=== PATIENT | female | born 1955 | race African-American/Black ===

== ENCOUNTER → 2017-04-28 | Outpatient (CLI) | payer MEDICARE ==
[~2017-04-28] MED LIST: ADVA250A INH; ALBU6.7H INH; AMLO10 PO; BIDITAB PO; CLON.2 PO; COUM5TAB PO; COZA100T PO; LORTA10 PO; NEUR600T PO; PROT40TA PO; REGL10TA5 PO; SEVEL800 PO; SIMV20 PO; VITA100T15 PO
[2017-04-28 15:30] LABS: MEAN CELL VOLUME 90.8 FL (80.0-100.0); MEAN CORPUSCULAR HEMOGLOBIN 29.2 PG (27.0-34.0); MEAN CORPUSCULAR HGB CONC 32.2 % (32.0-36.0); PLATELET COUNT 70 TH/MM3 (150-450); RED BLOOD COUNT 3.63 MIL/MM3 (4.00-5.30); RED CELL DISTRIBUTION WIDTH 15.8 % (11.6-17.2); WHITE BLOOD COUNT 4.2 TH/MM3 (4.0-11.0)
[2017-04-28 15:33] LABS: REVIEW FLAG AUTO DIFF
[2017-04-28 16:00] LABS: ALT (GPT) 11 U/L (10-53); ANION GAP 10 MEQ/L (5-15); AST (GOT) 10 U/L (15-37); BICARBONATE 25.8 MEQ/L (21.0-32.0); BLOOD UREA NITROGEN 22 MG/DL (7-18); CHLORIDE 103 MEQ/L (98-107); GLOMERULAR FILTRATION RATE 9 ML/MIN (>89); GLUCOSE,FASTING 69 MG/DL (74-99); POTASSIUM 4.4 MEQ/L (3.5-5.1); SODIUM (NA) 139 MEQ/L (136-145)
[2017-04-28 16:09] LABS: ALKALINE PHOSPHATASE 107 U/L (45-117); FREE T4 1.59 NG/DL (0.76-1.46); HDL CHOLESTEROL 52.2 MG/DL (40.0-60.0); LDL CHOLESTEROL 27 MG/DL (0-99); TOTAL BILIRUBIN ADULT 1.3 MG/DL (0.2-1.0)
[2017-04-28 16:15] LABS: HEMOGLOBIN A1b 1.9 %; HEMOGLOBIN Ao 83.8 %; HEMOGLOBIN LA1C 1.9 %; HEMOGLOBIN P3 5.9 %
== END ==
LOC: CLAB 14:47
PROVIDERS: ATTEND Internal Medicine Endocrinology, Diabetes & Metabolism
DX: E11.21 Type 2 diabetes mellitus with diabetic nephropathy (principal); E03.9 Hypothyroidism, unspecified; D64.9 Anemia, unspecified; E78.5 Hyperlipidemia, unspecified; I10 Essential (primary) hypertension
CPT/HCPCS: 36415; 80053; 80061; 83036; 84439; 84443; 85027

== ENCOUNTER 2017-11-29 21:49 | Emergency (ER) | payer MEDICARE ==
[~2017-11-29] VITALS: Ht 170.2 cm; Wt 73.6 kg
[2017-11-29 21:54] VITALS: BP 213/91; PULSE 92; RESP 22; TEMP 97.4; O2SAT 92
--- NOTE | 2017-11-29 22:07 | PD ---
HPI Chief Complaint: Skin Problem Time Seen by Provider: 22:04 Travel History International Travel<30 days: No Contact w/Intl Traveler<30days: No Traveled to known affect area: No History of Present Illness HPI 62-year-old female with history of end-stage renal disease on dialysis Thursday, , Thursday, hypertension, COPD, diabetes, presents emergency department for evaluation of her left upper extremity AV fistula. Patient states that she noticed there was a sore on it. She noticed this today when she woke up. Denies any significant pain. No fever or chills. Does not recall injury. She is concerned that it may be infected. She has no other symptoms to report. 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 ) Headaches: Yes Hepatitis: No Hiatal Hernia: No Hypertension: Yes Immune Disorder: No Implanted Vascular Access Dvce: Yes Kidney Stones: No Medical other: Yes (RECENT BOWEL PROBS) Musculoskeletal: No Neurologic: No Psychiatric: No Reproductive: No Immunizations Current: No Migraines: No Myocardial Infarction: No Radiation Therapy: No Renal Failure: Yes (DIALYSIS ) Seizures: No Sickle Cell Disease: No Sleep Apnea: No Thyroid Disease: No Ulcer: No Menopausal: Yes Past Surgical History Abdominal Surgery: No AICD: No Appendectomy: No Cardiac Surgery: No Section: Yes (X2) Cholecystectomy: No Ear Surgery: No Endocrine Surgery: No Eye Surgery: Yes (LASER SX BILATERAL CATARACTS) Genitourinary Surgery: No Gynecologic Surgery: Yes Hysterectomy: Yes (PARTIAL) Insulin Pump: No Joint Replacement: No Oral Surgery: No Pacemaker: No Thoracic Surgery: No Other Surgery: Yes (FISTULA LEFT ARM) Social History Alcohol Use: No Tobacco Use: No Substance Use: No Allergies-Medications (Allergen,Severity, Reaction): Coded Allergies: diatrizoate meglumine (Unverified Allergy, Severe, Swelling,ITCHING, ) furosemide (Unverified Allergy, Severe, 11/29/17) IV gadobenic acid (Unverified Allergy, Severe, Swelling,ITCHING, 11/29/17) gadodiamide (Unverified Allergy, Severe, Swelling,ITCHING, 11/29/17) gadoteridol (Unverified Allergy, Severe, Swelling,ITCHING, 11/29/17) iodixanol (Unverified Allergy, Severe, Swelling,ITCHING, 11/29/17) iohexol (Unverified Allergy, Severe, Swelling,ITCHING, 11/29/17) latex (Unverified Allergy, Severe, RASH, ITCH, 11/29/17) pioglitazone (Unverified Allergy, Severe, Swelling,ITCHING, 11/29/17) pregabalin (Unverified Allergy, Intermediate, VERY CONFUSED, 11/29/17) morphine (Unverified Allergy, Mild, NAUSEA/VOMITING, 11/29/17) *MDRO Multi-Drug Resistant Organism (Verified Allergy, Unknown, 11/29/17) Acinetobacter baumannii 2009 Reported Meds & Prescriptions Reported Meds & Active Scripts Active Mupirocin Topical (Mupirocin) 2 % Oint 1 Applic TOPICAL BID Reported Renvela (Sevelamer Carbonate) 800 Mg Tab 800 Mg PO TID Zocor (Simvastatin) 20 Mg Tab 20 Mg PO DAILY Protonix (Pantoprazole Sodium) 40 Mg Tab 40 Mg PO DAILY Reglan (Metoclopramide HCl) 5 Mg Tab 5 Mg PO TIDAC Cozaar (Losartan Potassium) 100 Mg Tab 100 Mg PO DAILY Gabapentin 300 Mg Cap 300 Mg PO HS Advair Diskus Inh (Fluticasone-Salmeterol Inh) 250-50 Mcg/Blist Aer 1 Puff INH BID Rinse mouth after use. Vitamin B12 (Cyanocobalamin) 500 Mcg Tab 2,000 Mcg PO WEEKLY Clonidine (Clonidine HCl) 0.1 Mg Tab 0.1 Mg PO TID Norvasc (Amlodipine Besylate) 10 Mg Tab 10 Mg PO DAILY Proventil Hfa 6.7 GM Inh (Albuterol Sulfate) 90 Mcg/Act Aer 2 Puff INH Q6H PRN Review of Systems Except as stated in HPI: all other systems reviewed are Neg Physical Exam Narrative GENERAL: Currently ill-appearing female patient, sitting in the chair, in no acute distress. SKIN: Focused skin assessment warm/dry. There is a 2 cm diameter area of excoriation on the proximal aspect of the AV fistula on the medial left upper extremity. No erythema or edema. No drainage. HEAD: Atraumatic. Normocephalic. EYES: Pupils equal and round. No scleral icterus. No injection or drainage. ENT: No nasal bleeding or discharge. Mucous membranes pink and moist. NECK: Trachea midline. No JVD. CARDIOVASCULAR: Regular rate and rhythm. 2/6 systolic murmur appreciated. RESPIRATORY: No accessory muscle use. Clear to auscultation. Breath sounds equal bilaterally. GASTROINTESTINAL: Abdomen soft, non-tender, nondistended. Hepatic and splenic margins not palpable. MUSCULOSKELETAL: No obvious deformities. No clubbing. No cyanosis. Left upper AV fistula. Positive thrill. Positive bruit NEUROLOGICAL: Awake and alert. No obvious cranial nerve deficits. Motor grossly within normal limits. Normal speech. PSYCHIATRIC: Appropriate mood and affect; insight and judgment normal. Data Data Last Documented VS Vital Signs Date Time Temp Pulse Resp B/P (MAP) Pulse Ox O2 Delivery O2 Flow Rate FiO2 11/29/17 22:18 75 15 186/73 (110) 100 Room Air 11/29/17 21:54 97.4 MDM Medical Decision Making Medical Screen Exam Complete: Yes Emergency Medical Condition: Yes Medical Record Reviewed: Yes Differential Diagnosis Excoriation versus abrasion versus subcutaneous infection versus cellulitis Narrative Course 62-year-old female presents to emergency department for evaluation of a sore on her left upper extremity AV fistula. This appears to be superficial excoriation as the location is medial and maybe rubbing up against her body clothing. There is no surrounding erythema. No induration or fluctuation. I discussed the patient with my attending physician who is also assess the area. Patient will be provided [place] ointment. She is advised to follow-up with primary care provider and return immediately with any acute worsening symptoms. Of note patient's oxygenation is 92% when he arrived to our facility. Her oxygen was not on. One section was placed and she is dependent on this at home , O2 sat return to normal. Diagnosis Primary Impression: Skin excoriation Referrals: Primary Care Physician Patient Instructions: Abrasion (ED), General Instructions Additional Instructions: Keep the area clean and dry Consider a dressing over the area to avoid it from rubbing against her clothing Follow-up the primary care provider Return immediately with acute worsening of symptoms Med/Other Pt SpecificInfo: Prescription(s) given Scripts Mupirocin Topical (Mupirocin Topical) 2 % Oint 1 APPLIC TOPICAL BID for Mgmt Bacterial Infection, #22 GM 0 Refills Prov: Mady Fong 11/29/17 Disposition: 01 DISCHARGE HOME Condition: Stable Mady Fong Nov 29, 2017 22:07
[2017-11-29 22:18] VITALS: BP 186/73; PULSE 75; RESP 15; O2SAT 100
[2017-11-29] MEDS ORDERED: ALBU6.7H INH (22:18)
[2017-11-29] MEDS ORDERED: VITA500T35 PO (22:18)
[2017-11-29] MEDS ORDERED: ADVA250A INH (22:18)
[2017-11-29] MEDS ORDERED: COZA100T PO (22:18)
[2017-11-29] MEDS ORDERED: GABA300C5 PO (22:18)
[2017-11-29] MEDS ORDERED: AMLO10 PO (22:18)
[2017-11-29] MEDS ORDERED: CLON0.1T PO (22:18)
[2017-11-29] MEDS ORDERED: REGL5TAB PO (22:18)
[2017-11-29] MEDS ORDERED: SEVEL800 PO (22:18)
[2017-11-29] MEDS ORDERED: ZOCO20TA PO (22:18)
[2017-11-29] MEDS ORDERED: PROT40TA PO (22:18)
[2017-11-29] MEDS ORDERED: MUPI2OIN TOPICAL (22:38)
--- NOTE | 2017-11-29 22:59 | PD ---
Physical Exam Narrative General: The patient is a well-developed well-nourished female in no acute distress. Head and Neck exam: Head is normocephalic atraumatic. Nose: Midline septum with pink mucous membranes Mouth: Dentition unremarkable. Moist mucus membranes. Neck: No palpable lymphadenopathy. No nuchal rigidity. No thyromegaly. Cardiovascular: Regular rate and rhythm without murmurs, gallops, or rubs. Lungs: Clear to auscultation bilaterally. No wheezes, rhonchi, or rales. Abdomen: Soft, without tenderness to palpation in all 4 quadrants of the abdomen. No guarding, rebound, or rigidity. Normal bowel sounds are audible. No tenderness on palpation of McBurney's point. Extremities: No clubbing, cyanosis, or edema. 2+ pulses in all 4 extremities. No calf tenderness on palpation. The area of interest is the patient's left upper extremity. The patient has an AV fistula in place noted to be in the medial aspect of the left upper arm. The patient has a palpable thrill. The patient on examination is noted to have some skin breakdown superficially over the site of the graft. There is no surrounding erythema, edema, warmth, or tenderness on palpation. There is a clear drainage. Neurologic Exam: Grossly nonfocal. No rash noted. Intact skin that is warm and dry. Data Data Last Documented VS Vital Signs Date Time Temp Pulse Resp B/P (MAP) Pulse Ox O2 Delivery O2 Flow Rate FiO2 11/29/17 22:18 75 15 186/73 (110) 100 Room Air 11/29/17 21:54 97.4 MDM Medical Record Reviewed: Yes Supervised Visit with DICK: Yes Narrative Course I, Dr. Layton, have reviewed the advance practice practitioner's documentation and am in agreement, met with the patient face to face, made the diagnosis, and the medical decision making was done by me. The patient was initially evaluated by Mady, the nurse practitioner. Please see their complete history and physical. *My assessment and Findings: The patient presents with a history of having her usual hemodialysis on Thursday after which when her AV fistula was de-accessed she noted an area of redness overlying the site. She reports that today when she woke up from a nap the area of skin breakdown was bigger. She was concerned about the possibility of infection, therefore she came to the emergency department for evaluation and treatment. She denies having any other symptoms associated with this. She does have some hypopigmentation overlying the AV fistula. She reports that this is from prior wounds related to access and scabbing. The patient denies having any fevers, chills, nausea, vomiting, diarrhea. She reports that she is otherwise feeling well. During the course of the patient's emergency department visit, the patient's history, examination, and differential diagnosis were reviewed with the patient. The patient was placed on a secured entrance monitor with oximetry and frequent blood pressure monitoring. The patient will have a nonstick dressing applied to the wound. Patient is given a prescription for a topical antibiotic. She is instructed regarding the importance of closely monitoring the wound for any changes or worsening. She is instructed to do twice daily dressing changes. She will follow-up to have her dialysis on Thursday and have her wound re- examined. Diagnosis Primary Impression: Skin excoriation Referrals: Primary Care Physician Patient Instructions: General Instructions, Abrasion (ED) Additional Instruction: Keep the area clean and dry Consider a dressing over the area to avoid it from rubbing against her clothing Follow-up the primary care provider Return immediately with acute worsening of symptoms Scripts Mupirocin Topical (Mupirocin Topical) 2 % Oint 1 APPLIC TOPICAL BID for Mgmt Bacterial Infection, #22 GM 0 Refills Prov: Mady Fong JOSE GUADALUPE 11/29/17 Disposition: 01 DISCHARGE HOME Condition: Stable Brea Layton MD Nov 29, 2017 22:59
== END 2017-11-29 23:25 | disposition home or self-care (01) ==
LOC: NEPE 21:49
DX: S40.812A Abrasion of left upper arm, initial encounter (principal); E11.22 Type 2 diabetes mellitus with diabetic chronic kidney disease; I13.2 Hypertensive heart and chronic kidney disease with heart failure and with stage 5 chronic kidney disease, or end stage renal disease; I50.9 Heart failure, unspecified; N18.6 End stage renal disease; E78.00 Pure hypercholesterolemia, unspecified; X58.XXXA Exposure to other specified factors, initial encounter; Z99.2 Dependence on renal dialysis
CPT/HCPCS: 99283

== ENCOUNTER 2018-06-04 19:18 | Observation (INO) ==
[2018-06-04] MEDS ORDERED: Sod Chloride 0.9% Inj 1,000 ML IV.SIG ONE (19:28)
[2018-06-04] MEDS ORDERED: Pantoprazole Inj 40 MG Vial IV.PUSH ONE (19:28)
[2018-06-04] MEDS ORDERED: Pantoprazole Inj 80 MG in Sodium Chlor 0.9% Inj 35 ML IV.SIG ONE (19:57)
[2018-06-04 20:21] LABS: Activated Partial Thrombo Time 23.8 sec (24.3-30.1); INR 1.1 Ratio; Prothrombin Time 11.6 sec (9.8-11.6)
--- NOTE | 2018-06-04 20:27 | ED ---
HPI General Chief complaint: GI Bleed Stated complaint: Vomitting blood/weakness Time Seen by Provider: 06/04/18 19:28 Source: patient Mode of arrival: ambulatory Limitations: no limitations History of Present Illness HPI Narrative: Patient is a 63-year-old female that presents for the evaluation of vomiting blood. The patient presents with her daughter who also helps provide some of the history. The patient states that the vomiting began this afternoon. The patient's daughter states that she arrived to the patient's home around 12pm this afternoon and saw the patient laying in bed. The daughter states that the patient proceeded to vomit what look liked a clot of blood. Both the patient and the daughter state that this has continued throughout the afternoon but they are not able to identify the amount of times she has vomited blood. The patient states that nothing like this has ever happened before. She states that she currently feels nauseous and has had some recent diarrhea. She denies any blood in her stool. The patient states that she has felt dizzy and the daughter states that this afternoon the patient had a 3-4 minute episode of altered mental status where she appeared to be hallucinating and did not recognize her family members. Related Data Home Medications Medication Instructions Recorded Confirmed albuterol sulfate 2.5 mg INHALATION Q4H PRN 06/04/18 06/04/18 amlodipine 10 mg PO DAILY 06/04/18 06/04/18 aspirin 81 mg PO DAILY 06/04/18 06/04/18 cinacalcet [Sensipar] 30 mg PO DAILY 06/04/18 06/04/18 ergocalciferol (vitamin D2) 5,000 unit PO DAILY 06/04/18 06/04/18 [Vitamin D2] gabapentin 100 mg PO BID 06/04/18 06/04/18 hydralazine 50 mg PO TID 06/04/18 06/04/18 insulin asp prt-insulin aspart 1 sliding scale dose SUB-Q UD 06/04/18 06/04/18 [Novolog Mix 70-30 U-100 Insuln] sevelamer carbonate [Renvela] See Label Instructions .ROUTE 06/04/18 06/04/18 .COMPLEX simvastatin 40 mg PO QPM 06/04/18 06/04/18 Allergies Allergy/AdvReac Type Severity Reaction Status Date / Time diatrizoate meglumine Allergy Severe Swelling,IT Verified 06/04/18 20:17 DALLIN furosemide Allergy Severe Abdominal Verified 06/04/18 20:17 Pain gadobenic acid Allergy Severe Swelling,IT Verified 06/04/18 20:17 DALLIN gadodiamide Allergy Severe Swelling,IT Verified 06/04/18 20:17 DALLIN gadoteridol Allergy Severe Swelling,IT Verified 06/04/18 20:17 DALLIN iodixanol Allergy Severe Swelling,IT Verified 06/04/18 20:17 DALLIN iohexol Allergy Severe Swelling,IT Verified 06/04/18 20:17 DALLIN latex Allergy Severe RASH, ITCH Verified 06/04/18 20:17 pioglitazone Allergy Severe Swelling,IT Verified 06/04/18 20:17 DALLIN pregabalin Allergy Intermediate VERY Verified 06/04/18 20:17 CONFUSED morphine Allergy Mild NAUSEA/VOMI Verified 06/04/18 20:17 TING *MDRO Multi-Drug Resistant Allergy Unknown Abdominal Uncoded 06/04/18 20:17 Organism Pain Review of Systems ROS: all other systems reviewed are negative ON LICENSE OF [facility] Medical History Medical History COPD (chronic obstructive pulmonary disease) (Acute) Diabetes (Acute) ESRD (end stage renal disease) on dialysis (Acute) HTN (hypertension) (Acute) Social History Social History Substance History: No History of Abuse Second Hand Smoke Exposure: Yes Smoking Status: Never smoker Tobacco Type: Cigarettes How Often Do You Have a Drink Containing Alcohol: Never Recent Travel in [facility] within the Last 8 Weeks: No Recent Out of Country Travel within the Last 8 Weeks: No Immunization History Tetanus Immunization: Unsure Hx Influenza Vaccine This Season: No Exam Narrative Exam Narrative: GENERAL: Anxious and in some distress. SKIN: Focused skin assessment warm/dry. HEAD: Atraumatic. Normocephalic. EYES: Pupils equal and round. No scleral icterus. No injection or drainage. ENT: No nasal bleeding or discharge. Mucous membranes pink and moist. Tongue is midline. No uvula deviation. NECK: Trachea midline. No JVD. CARDIOVASCULAR: Regular rate and rhythm. No murmur appreciated. RESPIRATORY: No accessory muscle use. Clear to auscultation. Breath sounds equal bilaterally. GASTROINTESTINAL: Abdomen soft, non-tender, nondistended. Hepatic and splenic margins not palpable. MUSCULOSKELETAL: No obvious deformities. No clubbing. No cyanosis. No edema. Full range of motion of the upper and lower extremities bilaterally. 2+ pulses bilaterally. NEUROLOGICAL: Awake and alert. No obvious cranial nerve deficits. Motor grossly within normal limits. Normal speech. PSYCHIATRIC: Appropriate mood and affect; insight and judgment normal. Course Initial Documented Vital Signs Pulse Rate 102 H 06/04/18 19:24 Respiratory Rate 22 06/04/18 19:24 Blood Pressure 130/60 06/04/18 19:24 Pulse Oximetry 100 06/04/18 19:24 Last Documented Vital Signs Pulse Rate 98 H 06/04/18 20:09 Respiratory Rate 16 06/04/18 20:09 Blood Pressure 153/77 H 06/04/18 20:09 Pulse Oximetry 98 06/04/18 20:09 Medical Decision Making MDM Narrative Medical decision making narrative: 63-year-old female that presents to the ED for evaluation of GI bleed as well as altered mental status. Patient was properly examined and was found to have signs and symptoms of unclear etiology but concerning for GI bleed especially upper GI bleed. Patient currently is not nauseous and has not vomited at all. Labs and imaging were done. Patient does not take any blood thinners. Labs and imaging did show what appears to be bilateral pleural effusions right worse than left, ESRD, no sign of anemia or white blood cell count elevation. Patient overall looks well but somewhat confused. She is able to answer most questions appropriately. I think is reasonable because of the patient's history for observation for further evaluation and to at least double check that the H&H does not go down and she does not have more upper GI bleed. Patient also has significant pleural effusions that will likely require drainage. This was discussed with my attending who agrees with plan. Case discussed with the family and patient were agree with admission. Case discussed with Dr. Bang agrees to admission to her service. Medical Screen Exam Complete: Yes Emergency Medical Condition: Yes Differential Diagnosis Differential Diagnosis: GI bleed versus peptic ulcer disease versus altered mental status versus dehydration versus anemia versus medication side effect Medical Records Medical records reviewed: Yes I reviewed the patient's medical records. Lab Data Lab results reviewed: Yes I reviewed the patient's lab results. Lab results narrative: Coags within normal limits Result diagrams: 06/04/18 21:25 06/04/18 19:55 Lab Results 06/04/18 06/04/18 06/04/18 Range/Units 19:55 19:55 19:55 WBC (4.0-11.0) th/mm3 RBC (4.00-5.30) mil/mm3 Hgb (11.6-15.3) gm/dL Hct (35.0-46.0) % MCV (80.0-100.0) fL MCH (27.0-34.0) pg MCHC (32.0-36.0) % RDW (11.6-17.2) % Plt Count (150-450) th/mm3 MPV (7.0-11.0) fL Prelim Diff (Auto) Neut % (Auto) (16.0-70.0) % Lymph % (Auto) (9.0-44.0) % Ector % (Auto) (0.0-8.0) % Eos % (Auto) (0.0-4.0) % Baso % (Auto) (0.0-2.0) % Neut # (Auto) (1.8-7.7) th/mm3 Lymph # (Auto) (1.0-4.8) th/mm3 Ector # (Auto) (0.0-0.9) th/mm3 Eos # (Auto) (0.0-0.4) th/mm3 Baso # (Auto) (0.0-0.2) th/mm3 Differential Comment PT 11.6 (9.8-11.6) sec INR 1.1 Ratio APTT 23.8 L (24.3-30.1) sec Sodium 137 (136-145) meq/L Potassium 5.5 H (3.5-5.1) meq/L Chloride 103 (98-107) meq/L Carbon Dioxide 22.8 (21.0-32.0) meq/L Anion Gap 11 (5-15) meq/L BUN 38 H (7-18) mg/dL Creatinine 6.83 H (0.50-1.00) mg/dL Estimated GFR 7 L (>89) mL/min Random Glucose 143 H (74-106) mg/dL Calcium 8.7 (8.5-10.1) mg/dL Total Bilirubin 1.7 H (0.2-1.0) mg/dL AST 32 (15-37) U/L ALT 13 (10-53) U/L Alkaline Phosphatase 95 (45-117) U/L Total Protein 7.7 (6.4-8.2) g/dL Albumin 2.7 L (3.4-5.0) g/dL Lipase 130 (73-393) U/L Blood Type Antibody Screen 06/04/18 06/04/18 Range/Units 19:55 21:25 WBC 11.1 H (4.0-11.0) th/mm3 RBC 3.72 L (4.00-5.30) mil/mm3 Hgb 10.9 L (11.6-15.3) gm/dL Hct 35.5 (35.0-46.0) % MCV 95.6 (80.0-100.0) fL MCH 29.4 (27.0-34.0) pg MCHC 30.7 L (32.0-36.0) % RDW 17.6 H (11.6-17.2) % Plt Count 70 L (150-450) th/mm3 MPV 9.9 (7.0-11.0) fL Prelim Diff (Auto) Slide review pending Neut % (Auto) 85.6 H (16.0-70.0) % Lymph % (Auto) 8.4 L (9.0-44.0) % Ector % (Auto) 5.5 (0.0-8.0) % Eos % (Auto) 0.0 (0.0-4.0) % Baso % (Auto) 0.5 (0.0-2.0) % Neut # (Auto) 9.5 H (1.8-7.7) th/mm3 Lymph # (Auto) 0.9 L (1.0-4.8) th/mm3 Ector # (Auto) 0.6 (0.0-0.9) th/mm3 Eos # (Auto) 0.0 (0.0-0.4) th/mm3 Baso # (Auto) 0.1 (0.0-0.2) th/mm3 Differential Comment . PT (9.8-11.6) sec INR Ratio APTT (24.3-30.1) sec Sodium (136-145) meq/L Potassium (3.5-5.1) meq/L Chloride (98-107) meq/L Carbon Dioxide (21.0-32.0) meq/L Anion Gap (5-15) meq/L BUN (7-18) mg/dL Creatinine (0.50-1.00) mg/dL Estimated GFR (>89) mL/min Random Glucose (74-106) mg/dL Calcium (8.5-10.1) mg/dL Total Bilirubin (0.2-1.0) mg/dL AST (15-37) U/L ALT (10-53) U/L Alkaline Phosphatase (45-117) U/L Total Protein (6.4-8.2) g/dL Albumin (3.4-5.0) g/dL Lipase (73-393) U/L Blood Type O Positive Antibody Screen Negative Imaging Data Attestation: I personally reviewed and interpreted this imaging study as follows : Radiologist's impression: Chest X-Ray 06/04/18 19:28 CONCLUSION: Small to moderate right effusion with bilateral airspace disease, right greater than left. Head CT 06/04/18 19:52 CONCLUSION: 1. No acute intracranial abnormalities. . Discharge Plan Discharge Disposition Patient Disposition: 30 Still Patient Discharge Details Diagnosis: Hematochezia, Altered mental state, Pleural effusion, End-stage renal disease ( ESRD) Physicians Team ED Provider: Fito Hernandez ED Midlevel Provider: Jorje Ghotra Primary Care Provider: Primary Care Eulalia Jaimes Attending Provider: Trena Bang Discharge Interventions Interventions: Vital Signs Last Done: 06/04/18 22:10 Status ED Status: Admitted Observation Patient
[2018-06-04 20:39] LABS: Alanine Aminotransferase 13 U/L (10-53)
[2018-06-04 20:40] LABS: Albumin 2.7 g/dL (3.4-5.0); Anion Gap 11 meq/L (5-15); Aspartate Aminotransferase 32 U/L (15-37); Blood Urea Nitrogen 38 mg/dL (7-18); Calcium 8.7 mg/dL (8.5-10.1); Carbon Dioxide 22.8 meq/L (21.0-32.0); Chloride 103 meq/L (98-107); Glomerular Filtration Rate 7 mL/min (>89); Glucose,Random 143 mg/dL (74-106); Sodium 137 meq/L (136-145)
[2018-06-04 20:42] LABS: Alkaline Phosphatase 95 U/L (45-117); Total Protein 7.7 g/dL (6.4-8.2)
[2018-06-04 21:01] LABS: Potassium 5.5 meq/L (3.5-5.1)
--- NOTE | 2018-06-04 21:10 | XR ---
EXAM DATE: 06/04/2018 9:01 PM EDT AGE/SEX: 63 years / Female INDICATIONS: Shortness of breath and cough with hematemesis. CLINICAL DATA: This is the patient's initial encounter. Patient reports that signs and symptoms have been present for 2 days and indicates a pain score of 0/10. MEDICAL/SURGICAL HISTORY: None. . Dialysis port, right chest. [place] [facility] [place] . FINDINGS: Small to moderate right effusion. Basilar airspace disease, right greater than left. No significant l eft effusion. Mild cardiomegaly. Right-sided catheter tip near cavoatrial junction. No pneumothorax. CONCLUSION: Small to moderate right effusion with bilateral airspace disease, right greater than left. Electronically signed by: Kyle Mercado MD 06/04/2018 9:08 PM EDT
--- NOTE | 2018-06-04 21:29 | CT ---
EXAM DATE: 06/04/2018 9:04 PM EDT AGE/SEX: 63 years / Female INDICATIONS: Altered mental status. Syncopal episode. CLINICAL DATA: This is the patient's initial encounter. Patient reports that signs and symptoms have been present for 1 day and indicates a pain score of 0/10. MEDICAL/SURGICAL HISTORY: Hypertension. Chronic obstructive pulmonary disease. Diabetes. None. RADIATION DOSE: 56.35 CTDI (mGy) [place] [facility] [place]. . TECHNIQUE: CT of the head without contrast. Using automated exposure control and adjustment of the mA and/or kV according to patient size, radiation dose was kept as low as reasonably achievable to ob tain optimal diagnostic quality images. DICOM format image data is available electronically for revi ew and comparison. FINDINGS: Cerebrum: The ventricles are normal for age. No evidence of midline shift, mass lesion, hemorrhage or acute infarction. No extraaxial fluid collections are seen. Posterior Fossa: The cerebellum and brainstem are intact. The 4th ventricle is midline. The cerebe llopontine angle is unremarkable. Extracranial: The visualized portion of the orbits is intact. Skull: The calvaria is intact. No evidence of skull fracture. CONCLUSION: 1. No acute intracranial abnormalities. . Electronically signed by: Kyle Mercado MD 06/04/2018 9:27 PM EDT
[2018-06-04] MEDS: Pantoprazole Inj 80 MG in Sodium Chlor 0.9% Inj 100 ML IV.CONT SCH (21:36)
[2018-06-04 21:40] LABS: Baso # (Auto) 0.1 th/mm3 (0.0-0.2); Baso % (Auto) 0.5 % (0.0-2.0); Hematocrit 35.5 % (35.0-46.0); Hemoglobin 10.9 gm/dL (11.6-15.3); Lymph # (Auto) 0.9 th/mm3 (1.0-4.8); Lymph % (Auto) 8.4 % (9.0-44.0); Mean Corpuscular Hemoglobin 29.4 pg (27.0-34.0); Mean Corpuscular Volume 95.6 fL (80.0-100.0); Mean Platelet Volume 9.9 fL (7.0-11.0); Mono # (Auto) 0.6 th/mm3 (0.0-0.9); Mono % (Auto) 5.5 % (0.0-8.0); Neut # (Auto) 9.5 th/mm3 (1.8-7.7); Neut % (Auto) 85.6 % (16.0-70.0); Platelet Count 70 th/mm3 (150-450); Red Blood Count 3.72 mil/mm3 (4.00-5.30); Red Cell Distribution Width 17.6 % (11.6-17.2); White Blood Count 11.1 th/mm3 (4.0-11.0)
[2018-06-04 21:43] LABS: Mean Corpuscular HGB Conc 30.7 % (32.0-36.0)
[2018-06-04] MEDS ORDERED: Acetaminophen 325 MG Tablet PO PRN (22:15)
[2018-06-04] MEDS ORDERED: Bisacodyl 10 MG Supp RECTAL PRN (22:15)
[2018-06-04 22:19] LABS: Ovalocytes 1+; Platelet Morphology Normal (Normal)
--- NOTE | 2018-06-04 23:11 | P.HPIM ---
History of Present Illness Primary Care Physician: No Primary Care Physician History of Present Illness: This is a 63-year-old female with a PMH of HTN, COPD, DM and ESRD on HD T// Thu who was brought to the ER for AMS and Hematemesis. Family member at bedside on arrival assisting w/ history, apparently patient had multiple episodes of nausea/vomiting w/ what appeared to be a clot. Family member then noted episode of AMS w/ confusion lasting several minutes, noted pt did not recognize her. Mental status now improved, however still noted to be confused. No seizure activity noted. Pt on ASA at home per review of medications. On arrival, BP 130/60, HR 102, O2 sat 100% on 3L NC, Afebrile. Hemoglobin 11.1. Hemoglobin 10.9. Platelets 70, previously hemoglobin 10.6 and platelets 70 on . INR 1.1. Creatinine 6.83, similar to previous. CXR was small to moderate right effusion. CT Head with no acute findings. Follows w/ Dr. Smith , last HD on Thursday. Currently on Protonix gtt - Diagnosis (1) Encephalopathy (2) ESRD (end stage renal disease) on dialysis (3) GI bleed (4) Thrombocytopenia (5) Pleural effusion Review of Systems PAST FAMILY HISTORY: Reviewed, positive for DM. All other systems reviewed negative except as stated in HPI PMFSH - History History Provided By: Patient - Medical History Medical History: Medical History (Last Reviewed 06/04/18 @ 20:18 by HUNTER Finnegan) COPD (chronic obstructive pulmonary disease) Diabetes ESRD (end stage renal disease) on dialysis HTN (hypertension) - Tobacco History Second Hand Smoke Exposure: Yes Smoking Status: Never smoker Tobacco Type: Cigarettes - Alcohol History How Often Do You Have a Drink Containing Alcohol: Never - Substance Use History Substance History: No History of Abuse - Travel History Recent Travel in the [place] Within the Last 8 Weeks: No Recent Travel Out of the Country Within the Last 8 Weeks: No - Immunization History Tetanus Immunization: Unsure Hx Influenza Vaccine This Season: No Medications and Allergies Active Medications: Active Medications Acetaminophen (Tylenol) 650 mg PO Q4H PRN PRN Reason: Temp > 100.4 Al Hydroxide/Mg Hydroxide (Milk Of [place] Liq) 30 ml PO Q12H PRN PRN Reason: Mild Constipation Bisacodyl (Dulcolax Supp) 10 mg RECTAL DAILY PRN PRN Reason: SEVERE CONSITIPATION Pantoprazole Sodium 80 mg/ (Sodium Chloride) 100 mls @ 10 mls/hr IV.CONT CONT NOLVIA Last Admin: 06/04/18 21:36 Dose: 10 mls/hr Lactulose (Lactulose Liq) 30 ml PO DAILY PRN PRN Reason: SEVERE CONSITIPATION Ondansetron HCl (Zofran Inj) 4 mg IV.PUSH Q6H PRN PRN Reason: NAUSEA OR VOMITING Senna/Docusate Sodium (Valarie-Colace) 1 tab PO BID [facility] Sennosides (Senokot) 17.2 mg PO Q12H PRN PRN Reason: Moderate Constipation Allergies Allergy/AdvReac Type Severity Reaction Status Date / Time diatrizoate meglumine Allergy Severe Swelling,IT Verified 06/04/18 20:17 DALLIN furosemide Allergy Severe Abdominal Verified 06/04/18 20:17 Pain gadobenic acid Allergy Severe Swelling,IT Verified 06/04/18 20:17 DALLIN gadodiamide Allergy Severe Swelling,IT Verified 06/04/18 20:17 DALLIN gadoteridol Allergy Severe Swelling,IT Verified 06/04/18 20:17 DALLIN iodixanol Allergy Severe Swelling,IT Verified 06/04/18 20:17 DALLIN iohexol Allergy Severe Swelling,IT Verified 06/04/18 20:17 DALLIN latex Allergy Severe RASH, ITCH Verified 06/04/18 20:17 pioglitazone Allergy Severe Swelling,IT Verified 06/04/18 20:17 DALLIN pregabalin Allergy Intermediate VERY Verified 06/04/18 20:17 CONFUSED morphine Allergy Mild NAUSEA/VOMI Verified 06/04/18 20:17 TING *MDRO Multi-Drug Resistant Allergy Unknown Abdominal Uncoded 06/04/18 20:17 Organism Pain Home Medications Medication Instructions Recorded Confirmed Type albuterol sulfate 2.5 mg INHALATION Q4H PRN 06/04/18 06/04/18 History amlodipine 10 mg PO DAILY 06/04/18 06/04/18 History aspirin 81 mg PO DAILY 06/04/18 06/04/18 History cinacalcet [Sensipar] 30 mg PO DAILY 06/04/18 06/04/18 History ergocalciferol (vitamin D2) 5,000 unit PO DAILY 06/04/18 06/04/18 History [Vitamin D2] gabapentin 100 mg PO BID 06/04/18 06/04/18 History hydralazine 50 mg PO TID 06/04/18 06/04/18 History insulin asp prt-insulin aspart 1 sliding scale dose SUB-Q UD 06/04/18 06/04/18 History [Novolog Mix 70-30 U-100 Insuln] sevelamer carbonate [Renvela] See Label Instructions .ROUTE 06/04/18 06/04/18 History .COMPLEX simvastatin 40 mg PO QPM 06/04/18 06/04/18 History Exam Vital signs: Vital Signs 06/04/18 19:24 06/04/18 20:09 06/04/18 22:10 Pulse Rate 102 H 98 H 89 Respiratory Rate 22 16 16 Blood Pressure 130/60 153/77 H 145/69 H Pulse Oximetry 100 98 98 06/04/18 22:23 Pulse Rate 89 Respiratory Rate Blood Pressure Pulse Oximetry Intake & Output 06/04/18 06/04/18 06/05/18 06:59 18:59 06:59 Intake Total 1035 / 1035 Balance 1035 / 1035 Weight 72.575 kg Intake: IV 1035 / 1035 Protonix Inj 80 MG In NS Inj 35 35 / 35 ML @ 420 mls/hr IV.SIG BOLUS ONE Rx#:[id number] NS Inj 1,000 ML @ Wide Open IV. 1000 / 1000 SIG BOLUS ONE Rx#:[id number] Narrative: PE: GENERAL: Middle-aged black female in no acute distress. SKIN: Focused skin assessment warm and dry. HEENT: PERRLA, EOMI. No scleral icterus or conjunctival pallor. No lid lag or facial droop. CARDIOVASCULAR: Regular rate and rhythm. No obvious murmurs to auscultation. No chest tenderness to palpation. RESPIRATORY: No obvious rhonchi or wheezing. Clear to auscultation. Breath sounds equal bilaterally. GASTROINTESTINAL: Abdomen soft, non-tender, nondistended. BS normal. MUSCULOSKELETAL: Extremities without clubbing, cyanosis, or edema. No obvious deformities. NEUROLOGICAL: Awake, alert. No focal neurologic deficits. Moving both upper and lower extremities spontaneously. PSYCHIATRIC: Appropriate mood and affect. Insight and judgment normal. Results - Labs CBC & Chem 7: 06/04/18 21:25 09/21/18 19:55 Labs: Short CBC 06/04/18 Range/Units 21:25 WBC 11.1 H (4.0-11.0) th/mm3 Hgb 10.9 L (11.6-15.3) gm/dL Hct 35.5 (35.0-46.0) % Plt Count 70 L (150-450) th/mm3 BMP 06/04/18 19:55 Sodium 137 Potassium 5.5 H Chloride 103 Carbon Dioxide 22.8 BUN 38 H Creatinine 6.83 H Calcium 8.7 Liver Function 06/04/18 Range/Units 19:55 Total Bilirubin 1.7 H (0.2-1.0) mg/dL AST 32 (15-37) U/L ALT 13 (10-53) U/L Alkaline Phosphatase 95 (45-117) U/L Albumin 2.7 L (3.4-5.0) g/dL - Imaging Impressions Chest X-Ray 06/04/18 19:28 CONCLUSION: Small to moderate right effusion with bilateral airspace disease, right greater than left. Head CT 06/04/18 19:52 CONCLUSION: 1. No acute intracranial abnormalities. . Caprini VTE Risk Assessment Caprini VTE Risk Assessment: No/Low Risk (score <= 1) VTE Pharmacological Exception Reason: Active bleeding Caprini Risk Assessment Model: Point Value = 1 Point Value = 2 Point Value = 3 Point Value = 5 Age 41-60 Minor surgery BMI > 25 kg/m2 Swollen legs Varicose veins or History of unexplained or recurrent spontaneous Oral contraceptives or hormone replacement Sepsis (< 1 month) Serious lung disease, including pneumonia (< 1 month) Abnormal pulmonary function Acute myocardial infarction Congestive heart failure (< 1 month) History of inflammatory bowel disease Medical patient at bed rest Age 61-74 Arthroscopic surgery Major open surgery (> 45 min) Laparoscopic surgery (> 45 min) Malignancy Confined to bed (> 72 hours) Immobilizing plaster cast Central venous access Age >= 75 History of VTE Family history of VTE Factor V Leiden Prothrombin [id number] Lupus anticoagulant Anticardiolipin antibodies Elevated serum homocysteine Heparin-induced thrombocytopenia Other congenital or acquired thrombophilia Stroke (< 1 month) Elective arthroplasty Hip, pelvis, or leg fracture Acute spinal cord injury (< 1 month) Prophylaxis Regimen: Total Risk Factor Score Risk Level Prophylaxis Regimen 0-1 Low Early ambulation 2 Moderate Order ONE of the following: *Sequential Compression Device (SCD) *Heparin 5000 units SQ BID 3-4 Higher Order ONE of the following medications: *Heparin 5000 units SQ TID *Enoxaparin/Lovenox 40 mg SQ daily (WT < 150 kg, CrCl > 30 mL/min) *Enoxaparin/Lovenox 30 mg SQ daily (WT < 150 kg, CrCl > 10-29 mL/min) *Enoxaparin/Lovenox 30 mg SQ BID (WT < 150 kg, CrCl > 30 mL/min) AND/OR *Sequential Compression Device (SCD) 5 or more Highest Order ONE of the following medications: *Heparin 5000 units SQ TID (Preferred with Epidurals) *Enoxaparin/Lovenox 40 mg SQ daily (WT < 150 kg, CrCl > 30 mL/min) *Enoxaparin/Lovenox 30 mg SQ daily (WT < 150 kg, CrCl > 10-29 mL/min) *Enoxaparin/Lovenox 30 mg SQ BID (WT < 150 kg, CrCl > 30 mL/min) AND *Sequential Compression Device (SCD) Assessment and Plan - Assessment (1) Encephalopathy Code(s): G93.40 - Encephalopathy, unspecified Status: Acute (2) ESRD (end stage renal disease) on dialysis Code(s): N18.6 - End stage renal disease; Z99.2 - Dependence on renal dialysis Status: Acute (3) GI bleed Code(s): K92.2 - Gastrointestinal hemorrhage, unspecified Status: Acute (4) Thrombocytopenia Code(s): D69.6 - Thrombocytopenia, unspecified Status: Acute (5) Pleural effusion Code(s): J90 - Pleural effusion, not elsewhere classified Status: Acute - Plan A/P: 1. Encephalopathy: family member reports episode of confusion/hallucinations, now improved. No reported seizure activity. Unclear etiology. CT Head w/ no acute findings, images reviewed. Neuro Checks, monitor closely. 2. GI Bleed: +hematemesis, hold ASA, currently on Protonix gtt will continue, consult GI for further eval/intervention. Hgb 10.6, stable in comparison to previous labs from 04/28/17, will repeat Hgb/Hct in am. Transfuse as needed. Previous admit 11/2013 for Left Popliteal DVT, s/p IVC and started on Coumadin, episode of GI Bleed w/ EGD showing mild gastritis, unclear if she is still on Coumadin. INR normal. 3. Thrombocytopenia: Platelets 70, perviously 70 as well on 04/28/17, monitor closely, repeat labs in am 4. ESRD on HD: T//Thu, follows w/ Dr. Smith, will consult to resume HD as scheduled. 5. Pleural Effusions: CXR w/ small to moderate right effusion, h/o similar symptoms, monitor I/O, previously on Lasix, now listed as ALLERGY for abdominal pain, will hold for now, confirm allergy. Echo 12/01/10 w/ EF 60-65%, will repeat Echo to eval for systolic/diastolic dysfunction. 6. DVT Prophylaxis: Pharmacologic contraindication in light of acute GI Bleed 7. Social work for d/c planning as needed 8. Case discussed w/ ER physician at length, labs/records/imaging reviewed by me.
[2018-06-04] MEDS ORDERED: Dextrose 50% in Water 50 ML Vial IV.PUSH PRN (23:13)
[2018-06-04 23:22] LABS: Troponin I 0.05 ng/mL (0.02-0.05)
[2018-06-05 08:24] LABS: Albumin 2.4 g/dL (3.4-5.0); Anion Gap 8 meq/L (5-15); Aspartate Aminotransferase 17 U/L (15-37); Blood Urea Nitrogen 45 mg/dL (7-18); Calcium 8.6 mg/dL (8.5-10.1); Carbon Dioxide 26.5 meq/L (21.0-32.0); Chloride 105 meq/L (98-107); Glomerular Filtration Rate 6 mL/min (>89); Glucose,Random 87 mg/dL (74-106); Potassium 5.5 meq/L (3.5-5.1); Sodium 139 meq/L (136-145)
[2018-06-05 08:27] LABS: Alanine Aminotransferase 9 U/L (10-53); Alkaline Phosphatase 84 U/L (45-117); Total Protein 6.7 g/dL (6.4-8.2)
[2018-06-05 08:30] LABS: Baso % (Auto) 0.2 % (0.0-2.0); Eos % (Auto) 0.5 % (0.0-4.0); Hematocrit 33.9 % (35.0-46.0); Hemoglobin 10.5 gm/dL (11.6-15.3); Lymph # (Auto) 1.3 th/mm3 (1.0-4.8); Lymph % (Auto) 12.6 % (9.0-44.0); Mean Corpuscular HGB Conc 31.1 % (32.0-36.0); Mean Corpuscular Hemoglobin 30.2 pg (27.0-34.0); Mean Platelet Volume 10.3 fL (7.0-11.0); Mono # (Auto) 0.6 th/mm3 (0.0-0.9); Mono % (Auto) 5.7 % (0.0-8.0); Neut # (Auto) 8.1 th/mm3 (1.8-7.7); Platelet Count 68 th/mm3 (150-450); Red Blood Count 3.49 mil/mm3 (4.00-5.30); Red Cell Distribution Width 17.4 % (11.6-17.2)
[2018-06-05 09:24] LABS: Ovalocytes 1+
[2018-06-05] MEDS: Senna/Docusate Sodium 8.6/50 MG Tablet PO SCH ×2 (09:42→20:44)
[2018-06-05] MEDS ORDERED: Heparin 10,000 UNITS/10 ML Vial (for IV use) OTHER PRN ×2 (10:22)
[2018-06-05] MEDS ORDERED: Acetaminophen 325 MG Tablet PO PRN (10:22)
[2018-06-05] MEDS ORDERED: Albumin Human 25% Inj 100 ML IV.SIG PRN (10:22)
[2018-06-05] MEDS ORDERED: Sod Chloride 0.9% Inj 1,000 ML IV.CONT PRN (10:22)
[2018-06-05] MEDS ORDERED: Gelatin 12 MM/7 MM Topical Foam TOPICAL PRN (10:22)
[2018-06-05] MEDS ORDERED: Sod Chloride 0.9% Inj 1,000 ML OTHER PRN ×2 (10:22)
--- NOTE | 2018-06-05 10:35 | P.CONNP ---
History of Present Illness Service: Nephrology Reason for Consult: ESRD Primary Care Provider: No Primary Care Physician History of Present Illness: Ms. Chery is a 63 year old woman on HD TTS. She had dialysis on . She was admitted to the hospital with altered mental status and questionable history of hematemesis. It is unclear after speaking to her if she coughed out blood or if she had hematemesis. In any event, her Hemoglobin appears to be stable. Her mental status appears to have returned to baseline. Patient wants to be discharged home. Review of Systems Constitutional: Reports anorexia Cardiovascular: Denies chest pain, Denies chest pain at rest Respiratory: Reports shortness of breath, Reports shortness of breath with activity Gastrointestinal: Denies abdominal pain Musculoskeletal: Reports body aches, Reports muscle weakness, Denies back pain PMFSH - History History Provided By: Patient - Medical History Medical History: Medical History (Last Reviewed 06/04/18 @ 20:18 by HUNTER Finnegan) COPD (chronic obstructive pulmonary disease) Diabetes ESRD (end stage renal disease) on dialysis HTN (hypertension) - Tobacco History Second Hand Smoke Exposure: Yes Smoking Status: Never smoker Tobacco Type: Cigarettes - Alcohol History How Often Do You Have a Drink Containing Alcohol: Never - Substance Use History Substance History: No History of Abuse - Travel History Recent Travel in the [place] Within the Last 8 Weeks: No Recent Travel Out of the Country Within the Last 8 Weeks: No - Immunization History Tetanus Immunization: Unsure Hx Influenza Vaccine This Season: No Medications and Allergies Active Medications: Active Medications Acetaminophen (Tylenol) 650 mg PO Q4H PRN PRN Reason: Temp > 100.4 Acetaminophen (Tylenol) 650 mg PO UNSCH PRN PRN Reason: SEE LABEL COMMENTS Al Hydroxide/Mg Hydroxide (Milk Of [place] Liq) 30 ml PO Q12H PRN PRN Reason: Mild Constipation Bisacodyl (Dulcolax Supp) 10 mg RECTAL DAILY PRN PRN Reason: SEVERE CONSITIPATION Cinacalcet (Sensipar) 30 mg PO DAILY NOLVIA Clonidine HCl (Catapres) 0.1 mg PO UNSCH PRN PRN Reason: SEE LABEL COMMENTS Dextrose (D50w Vial) 50 ml IV.PUSH UNSCH PRN PRN Reason: PER HYPOGLYCEMIA PROTOCOL Diphenhydramine HCl (Benadryl) 25 mg PO UNSCH PRN PRN Reason: SEE LABEL COMMENTS Epoetin Shaun (Epogen Inj) 10,000 unit IV.PUSH UNSCH PRN PRN Reason: SEE LABEL COMMENTS Gelatin (Gelfoam 12 Mm/7 Mm Topical) 1 foam TOPICAL PRN PRN PRN Reason: help stop bleeding from site Gentamicin Sulfate (Gentamicin Inj) 20 mg OTHER WITH DIALYSIS PRN PRN Reason: Dwell Gentamycin Lock Glucagon (Glucagon Inj) 1 mg OTHER PRN PRN PRN Reason: for Hypoglycemia Protocol Heparin Sodium (Porcine) (Heparin Inj) 8,000 units OTHER WITH DIALYSIS PRN PRN Reason: for machine prime Heparin Sodium (Porcine) (Heparin Inj) 1,000 units OTHER WITH DIALYSIS PRN PRN Reason: Dwell Heparin to Fill Catheter Pantoprazole Sodium 80 mg/ (Sodium Chloride) 100 mls @ 10 mls/hr IV.CONT CONT NOLVIA Last Infusion: 06/05/18 09:44 Dose: Infused Albumin Human (Flexbumin 25% Inj) 100 mls @ 60 mls/hr IV.SIG WITH DIALYSIS PRN PRN Reason: hypotension / volume replace Sodium Chloride (Ns Inj) 1,000 mls @ 200 mls/hr OTHER .Q5H PRN PRN Reason: for dialyzer flush PRN Sodium Chloride (Ns Inj) 1,000 mls @ 0 mls/hr IV.CONT .Q0M PRN PRN Reason: hypotension / volume replace Sodium Chloride (Ns Inj) 1,000 mls @ 0 mls/hr OTHER .Q0M PRN PRN Reason: for prime and rinse back Insulin Human Regular (Novolin R Correctional Sugar Inj) 0 units SQ ACHS NOLVIA; Protocol Lactulose (Lactulose Liq) 30 ml PO DAILY PRN PRN Reason: SEVERE CONSITIPATION Mannitol (Mannitol Inj) 12.5 gm IV.PUSH UNSCH PRN PRN Reason: hypotension / volume replace Nitroglycerin (Nitrostat Sl) 0.4 mg SL Q5M PRN PRN Reason: CHEST PAIN Ondansetron HCl (Zofran Inj) 4 mg IV.PUSH Q6H PRN PRN Reason: NAUSEA OR VOMITING Ondansetron HCl (Zofran Inj) 4 mg IV.PUSH UNSCH PRN PRN Reason: NAUSEA OR VOMITING Senna/Docusate Sodium (Valarie-Colace) 1 tab PO BID NOLVIA Last Admin: 06/05/18 09:42 Dose: Not Given Sennosides (Senokot) 17.2 mg PO Q12H PRN PRN Reason: Moderate Constipation Sodium Chloride (Ns Flush) 5 ml IV.FLUSH PRN PRN PRN Reason: flush each lumen during HD Allergies Allergy/AdvReac Type Severity Reaction Status Date / Time diatrizoate meglumine Allergy Severe Swelling,IT Verified 06/04/18 20:17 DALLIN furosemide Allergy Severe Abdominal Verified 06/04/18 20:17 Pain gadobenic acid Allergy Severe Swelling,IT Verified 06/04/18 20:17 DALLIN gadodiamide Allergy Severe Swelling,IT Verified 06/04/18 20:17 DALLIN gadoteridol Allergy Severe Swelling,IT Verified 06/04/18 20:17 DALLIN iodixanol Allergy Severe Swelling,IT Verified 06/04/18 20:17 DALLIN iohexol Allergy Severe Swelling,IT Verified 06/04/18 20:17 DALLIN latex Allergy Severe RASH, ITCH Verified 06/04/18 20:17 pioglitazone Allergy Severe Swelling,IT Verified 06/04/18 20:17 DALLIN pregabalin Allergy Intermediate VERY Verified 06/04/18 20:17 CONFUSED morphine Allergy Mild NAUSEA/VOMI Verified 06/04/18 20:17 TING *MDRO Multi-Drug Resistant Allergy Unknown Abdominal Uncoded 06/04/18 20:17 Organism Pain Home Medications Medication Instructions Recorded Confirmed Type albuterol sulfate 2.5 mg INHALATION Q4H PRN 06/04/18 06/04/18 History amlodipine 10 mg PO DAILY 06/04/18 06/04/18 History aspirin 81 mg PO DAILY 06/04/18 06/04/18 History cinacalcet [Sensipar] 30 mg PO DAILY 06/04/18 06/04/18 History ergocalciferol (vitamin D2) 5,000 unit PO DAILY 06/04/18 06/04/18 History [Vitamin D2] gabapentin 100 mg PO BID 06/04/18 06/04/18 History hydralazine 50 mg PO TID 06/04/18 06/04/18 History insulin asp prt-insulin aspart 1 sliding scale dose SUB-Q UD 06/04/18 06/04/18 History [Novolog Mix 70-30 U-100 Insuln] sevelamer carbonate [Renvela] See Label Instructions .ROUTE 06/04/18 06/04/18 History .COMPLEX simvastatin 40 mg PO QPM 06/04/18 06/04/18 History Exam Vital signs: Vital Signs 06/04/18 19:24 06/04/18 20:09 06/04/18 22:10 Temperature Pulse Rate 102 H 98 H 89 Respiratory Rate 22 16 16 Blood Pressure 130/60 153/77 H 145/69 H Pulse Oximetry 100 98 98 06/04/18 22:23 06/04/18 23:28 06/05/18 00:00 Temperature 98.2 F Pulse Rate 89 90 87 Respiratory Rate 20 Blood Pressure 137/64 Pulse Oximetry 98 06/05/18 04:00 06/05/18 07:50 Temperature 99.1 F 99.3 F Pulse Rate 86 83 Respiratory Rate 19 16 Blood Pressure 134/61 120/78 Pulse Oximetry 94 L 99 Intake & Output 06/04/18 06/05/18 06/05/18 18:59 06:59 18:59 Intake Total 1035 / 1035 100 / 100 Balance 1035 / 1035 100 / 100 Weight 72.575 kg Intake: IV 1035 / 1035 100 / 100 Protonix Inj 80 MG In NS Inj 100 / 100 100 ML @ 10 mls/hr IV.CONT CONT NOLVIA Rx#:[id number] Protonix Inj 80 MG In NS Inj 35 35 / 35 ML @ 420 mls/hr IV.SIG BOLUS ONE Rx#:[id number] NS Inj 1,000 ML @ Wide Open IV. 1000 / 1000 SIG BOLUS ONE Rx#:[id number] Oral 0 / 0 Other: # Voids 0 - Constitutional no acute distress, chronically ill appearing - Routine HEENT Exam Head: Present: normocephalic, atraumatic Eye: Present: EOMI, PERRL - Routine Neck Exam Present: supple. Absent: JVD - Routine Respiratory Exam Present: CTA bilaterally Comments: diminished breath sounds right base of the lung. - Routine Cardiovascular Exam Present: RRR, S1, S2 - Routine Extremities Exam Absent: edema Results - Lab Results 06/05/18 07:20 06/05/18 07:20 Most recent lab results Calcium 8.6 mg/dL (8.5-10.1) 06/05/18 07:20 Assessment and Plan - Assessment (1) ESRD (end stage renal disease) on dialysis Code(s): N18.6 - End stage renal disease; Z99.2 - Dependence on renal dialysis Status: Acute Plan: patient will be dialyzed today. Monitor fluid and electrolytes. Hyperkalemia is noted, should improve with dialysis. Avoid Gadolinium. Avoid excessive fluid administration. It should be noted that patient was recently at [facility] for AVF surgery, she had PEA arrest on the table. Surgery was aborted and she was in the ICU for several days. Later she was sent to [facility]. Currently only has PermCath for dialysis. (2) Cardiomyopathy Code(s): I42.9 - Cardiomyopathy, unspecified Status: Acute Plan: Ischemic cardiomyopathy. Fluid management with dialysis. (3) Altered mental state Code(s): R41.82 - Altered mental status, unspecified Status: Acute Plan: Resolved. (4) GI bleed Code(s): K92.2 - Gastrointestinal hemorrhage, unspecified Status: Acute Plan: Hemoglobin is stable. Questionable GI bleeding. GI on the case. (5) Pleural effusion, right Code(s): J90 - Pleural effusion, not elsewhere classified Status: Acute Plan: Consider thoracentesis. - Attending Attestation Thanks for the consult. (3) Altered mental state Qualifiers: Altered mental status type: unspecified Qualified Code(s): R41.82 - Altered mental status, unspecified
--- NOTE | 2018-06-05 11:21 | P.CONGI ---
History of Present Illness Consult date: 06/05/18 Consult reason: GI bleed Chief complaint: UPPER GI BLEED, ESRD, PLEURAL EFFUSIONS History of Present Illness: This is a 63-year-old female who came into the hospital on 06/04/2018 with symptoms of some altered mental status, weakness and confusion, and cough in which she notes small plugs of blood expelled/possible hemoptysis. Patient is end-stage renal disease with her dialysis Thursday and Thursday and did have dialysis this past . Patient is awake answering simple questions and plan is for hemodialysis today. Patient does note some nausea but no vomiting no dyspepsia no dysphasia patient denies any obvious bleeding and no constipation. Patient does have a history of some diarrhea usually about twice a month but feels like it is related to eating vegetables in her diet. Last episode was approximately a week ago 1 loose stool and 1 event. Current labs show hemoglobin initially 10.9 on admission now 10.5, PT/INR 1.1, bilirubin 1.7 , AST 17 ALT 9, and lipase 130. Initially symptoms were noted for hematemesis and altered mental status. According to the record patient has been on aspirin at home but she currently denies any other blood thinners. Chest x-ray noted small to moderate right pleural effusion and patient states she has had thoracentesis 2 in her life last one done approximately 3 years ago gastroenterology was consulted to assist with any possible GI bleed and plan of care assistance. <Kassi Garner - Last Filed: 06/05/18 11:07> Review of Systems All other systems reviewed negative except as stated in HPI <Kassi Garner - Last Filed: 06/05/18 11:07> PMFSH - History History Provided By: Patient - Medical History Medical History: Medical History (Last Reviewed 06/04/18 @ 20:18 by HUNTER Finnegan) COPD (chronic obstructive pulmonary disease) Diabetes ESRD (end stage renal disease) on dialysis HTN (hypertension) - Tobacco History Second Hand Smoke Exposure: Yes Smoking Status: Never smoker Tobacco Type: Cigarettes - Alcohol History How Often Do You Have a Drink Containing Alcohol: Never - Substance Use History Substance History: No History of Abuse - Travel History Recent Travel in the [place] Within the Last 8 Weeks: No Recent Travel Out of the Country Within the Last 8 Weeks: No - Immunization History Tetanus Immunization: Unsure Hx Influenza Vaccine This Season: No <Kassi Garner M - Last Filed: 06/05/18 11:07> - Medical History Medical History: Medical History (Last Reviewed 06/04/18 @ 20:18 by HUNTER Finnegan) COPD (chronic obstructive pulmonary disease) Diabetes ESRD (end stage renal disease) on dialysis HTN (hypertension) <Nicholas Lux - Last Filed: 06/06/18 00:19> Medications and Allergies Active Medications: Active Medications Acetaminophen (Tylenol) 650 mg PO Q4H PRN PRN Reason: Temp > 100.4 Acetaminophen (Tylenol) 650 mg PO UNSCH X1 PRN PRN Reason: SEE LABEL COMMENTS Al Hydroxide/Mg Hydroxide (Milk Of Magnkam Liq) 30 ml PO Q12H PRN PRN Reason: Mild Constipation Bisacodyl (Dulcolax Supp) 10 mg RECTAL DAILY PRN PRN Reason: SEVERE CONSITIPATION Cinacalcet (Sensipar) 30 mg PO DAILY VIANEY Clonidine HCl (Catapres) 0.1 mg PO UNSCH X1 PRN PRN Reason: SEE LABEL COMMENTS Dextrose (D50w Vial) 50 ml IV.PUSH UNSCH PRN PRN Reason: PER HYPOGLYCEMIA PROTOCOL Diphenhydramine HCl (Benadryl) 25 mg PO UNSCH PRN PRN Reason: SEE LABEL COMMENTS Epoetin Shaun (Epogen Inj) 10,000 unit IV.PUSH UNSCH PRN PRN Reason: SEE LABEL COMMENTS Gelatin (Gelfoam 12 Mm/7 Mm Topical) 1 foam TOPICAL UNSCH PRN PRN Reason: help stop bleeding from site Gentamicin Sulfate (Gentamicin Inj) 20 mg OTHER WITH DIALYSIS PRN PRN Reason: Dwell Gentamycin Lock Glucagon (Glucagon Inj) 1 mg OTHER PRN PRN PRN Reason: for Hypoglycemia Protocol Heparin Sodium (Porcine) (Heparin Inj) 8,000 units OTHER WITH DIALYSIS PRN PRN Reason: for machine prime Heparin Sodium (Porcine) (Heparin Inj) 0 units OTHER WITH DIALYSIS PRN PRN Reason: Dwell Heparin to Fill Catheter Pantoprazole Sodium 80 mg/ (Sodium Chloride) 100 mls @ 10 mls/hr IV.CONT CONT VIANEY Last Infusion: 06/05/18 09:44 Dose: Infused Albumin Human (Flexbumin 25% Inj) 100 mls @ 60 mls/hr IV.SIG WITH DIALYSIS PRN PRN Reason: hypotension / volume replace Sodium Chloride (Ns Inj) 1,000 mls @ 200 mls/hr OTHER .Q5H PRN PRN Reason: for dialyzer flush PRN Sodium Chloride (Ns Inj) 1,000 mls @ 0 mls/hr IV.CONT .Q0M PRN PRN Reason: hypotension / volume replace Sodium Chloride (Ns Inj) 1,000 mls @ 0 mls/hr OTHER .Q0M PRN PRN Reason: for prime and rinse back Insulin Human Regular (Novolin R Correctional Sugar Inj) 0 units SQ ACHS VIANEY; Protocol Lactulose (Lactulose Liq) 30 ml PO DAILY PRN PRN Reason: SEVERE CONSITIPATION Mannitol (Mannitol Inj) 12.5 gm IV.PUSH UNSCH PRN PRN Reason: hypotension / volume replace Nitroglycerin (Nitrostat Sl) 0.4 mg SL Q5M PRN PRN Reason: CHEST PAIN Ondansetron HCl (Zofran Inj) 4 mg IV.PUSH Q6H PRN PRN Reason: NAUSEA OR VOMITING Ondansetron HCl (Zofran Inj) 4 mg IV.PUSH UNSCH X1 PRN PRN Reason: NAUSEA OR VOMITING Senna/Docusate Sodium (Valarie-Colace) 1 tab PO BID [facility] Last Admin: 06/05/18 09:42 Dose: Not Given Sennosides (Senokot) 17.2 mg PO Q12H PRN PRN Reason: Moderate Constipation Sodium Chloride (Ns Flush) 5 ml IV.FLUSH UNSCH PRN PRN Reason: flush each lumen during HD <Kassi Garner - Last Filed: 06/05/18 11:07> Active Medications: Active Medications Acetaminophen (Tylenol) 650 mg PO Q4H PRN PRN Reason: Temp > 100.4 Acetaminophen (Tylenol) 650 mg PO UNSCH X1 PRN PRN Reason: SEE LABEL COMMENTS Al Hydroxide/Mg Hydroxide (Milk Of Magnesia Liq) 30 ml PO Q12H PRN PRN Reason: Mild Constipation Albuterol (Duoneb Neb (Vianey)) 1 ampul NEB Q6HR WHILE AWAKE NEB [facility] Last Admin: 06/05/18 19:36 Dose: 1 ampul Amlodipine Besylate (Norvasc) 10 mg PO DAILY [facility] Bisacodyl (Dulcolax Supp) 10 mg RECTAL DAILY PRN PRN Reason: SEVERE CONSITIPATION Cinacalcet (Sensipar) 30 mg PO DAILY [facility] [place] Last Admin: 06/05/18 09:30 Dose: 30 mg Clonidine HCl (Catapres) 0.1 mg PO UNSCH X1 PRN PRN Reason: SEE LABEL COMMENTS Dextrose (D50w Vial) 50 ml IV.PUSH UNSCH PRN PRN Reason: PER HYPOGLYCEMIA PROTOCOL Diphenhydramine HCl (Benadryl) 25 mg PO UNSCH PRN PRN Reason: SEE LABEL COMMENTS Epoetin Shaun (Epogen Inj) 10,000 unit IV.PUSH UNSCH PRN PRN Reason: SEE LABEL COMMENTS Last Admin: 06/05/18 17:05 Dose: 10,000 unit Gelatin (Gelfoam 12 Mm/7 Mm Topical) 1 foam TOPICAL UNSCH PRN PRN Reason: help stop bleeding from site Gentamicin Sulfate (Gentamicin Inj) 20 mg OTHER WITH DIALYSIS PRN PRN Reason: Dwell Gentamycin Lock Last Admin: 06/05/18 17:04 Dose: 20 mg Glucagon (Glucagon Inj) 1 mg OTHER PRN PRN PRN Reason: for Hypoglycemia Protocol Heparin Sodium (Porcine) (Heparin Inj) 8,000 units OTHER WITH DIALYSIS PRN PRN Reason: for machine prime Heparin Sodium (Porcine) (Heparin Inj) 0 units OTHER WITH DIALYSIS PRN PRN Reason: Dwell Heparin to Fill Catheter Last Admin: 06/05/18 17:04 Dose: 1,000 units Hydralazine HCl (Apresoline) 50 mg PO TID [facility] Last Admin: 06/05/18 22:58 Dose: Not Given Pantoprazole Sodium 80 mg/ (Sodium Chloride) 100 mls @ 10 mls/hr IV.CONT CONT [facility] Last Infusion: 06/05/18 09:44 Dose: Infused Albumin Human (Flexbumin 25% Inj) 100 mls @ 60 mls/hr IV.SIG WITH DIALYSIS PRN PRN Reason: hypotension / volume replace Sodium Chloride (Ns Inj) 1,000 mls @ 200 mls/hr OTHER .Q5H PRN PRN Reason: for dialyzer flush PRN Sodium Chloride (Ns Inj) 1,000 mls @ 0 mls/hr IV.CONT .Q0M PRN PRN Reason: hypotension / volume replace Sodium Chloride (Ns Inj) 1,000 mls @ 0 mls/hr OTHER .Q0M PRN PRN Reason: for prime and rinse back Insulin Human Regular (Novolin R Correctional Sugar Inj) 0 units SQ ACHS [facility]; Protocol Last Admin: 06/05/18 22:58 Dose: Not Given Lactulose (Lactulose Liq) 30 ml PO DAILY PRN PRN Reason: SEVERE CONSITIPATION Mannitol (Mannitol Inj) 12.5 gm IV.PUSH UNSCH PRN PRN Reason: hypotension / volume replace Nitroglycerin (Nitrostat Sl) 0.4 mg SL Q5M PRN PRN Reason: CHEST PAIN Ondansetron HCl (Zofran Inj) 4 mg IV.PUSH Q6H PRN PRN Reason: NAUSEA OR VOMITING Ondansetron HCl (Zofran Inj) 4 mg IV.PUSH UNSCH X1 PRN PRN Reason: NAUSEA OR VOMITING Pravastatin Sodium (Pravachol) 80 mg PO QPM [facility] [place] Last Admin: 06/05/18 22:58 Dose: Not Given Senna/Docusate Sodium (Valarie-Colace) 1 tab PO BID [facility] Last Admin: 06/05/18 20:44 Dose: Not Given Sennosides (Senokot) 17.2 mg PO Q12H PRN PRN Reason: Moderate Constipation Sodium Chloride (Ns Flush) 5 ml IV.FLUSH UNSCH PRN PRN Reason: flush each lumen during HD Vitamin D (Vitamin D3) 5,000 unit PO DAILY [facility] <Nicholas Lux - Last Filed: 06/06/18 00:19> Allergies Allergy/AdvReac Type Severity Reaction Status Date / Time diatrizoate meglumine Allergy Severe Swelling,IT Verified 06/04/18 20:17 DALLIN furosemide Allergy Severe Abdominal Verified 06/04/18 20:17 Pain gadobenic acid Allergy Severe Swelling,IT Verified 06/04/18 20:17 DALLIN gadodiamide Allergy Severe Swelling,IT Verified 06/04/18 20:17 DALLIN gadoteridol Allergy Severe Swelling,IT Verified 06/04/18 20:17 DALLIN iodixanol Allergy Severe Swelling,IT Verified 06/04/18 20:17 DALLIN iohexol Allergy Severe Swelling,IT Verified 06/04/18 20:17 DALLIN latex Allergy Severe RASH, ITCH Verified 06/04/18 20:17 pioglitazone Allergy Severe Swelling,IT Verified 06/04/18 20:17 DALLIN pregabalin Allergy Intermediate VERY Verified 06/04/18 20:17 CONFUSED morphine Allergy Mild NAUSEA/VOMI Verified 06/04/18 20:17 TING *MDRO Multi-Drug Resistant Allergy Unknown Abdominal Uncoded 06/04/18 20:17 Organism Pain Home Medications Medication Instructions Recorded Confirmed Type albuterol sulfate 2.5 mg INHALATION Q4H PRN 06/04/18 06/04/18 History amlodipine 10 mg PO DAILY 06/04/18 06/04/18 History aspirin 81 mg PO DAILY 06/04/18 06/04/18 History cinacalcet [Sensipar] 30 mg PO DAILY 06/04/18 06/04/18 History ergocalciferol (vitamin D2) 5,000 unit PO DAILY 06/04/18 06/04/18 History [Vitamin D2] gabapentin 100 mg PO BID 06/04/18 06/04/18 History hydralazine 50 mg PO TID 06/04/18 06/04/18 History insulin asp prt-insulin aspart 1 sliding scale dose SUB-Q UD 06/04/18 06/04/18 History [Novolog Mix 70-30 U-100 Insuln] sevelamer carbonate [Renvela] See Label Instructions .ROUTE 06/04/18 06/04/18 History .COMPLEX simvastatin 40 mg PO QPM 06/04/18 06/04/18 History Exam Vital signs: Vital Signs 06/04/18 19:24 06/04/18 20:09 06/04/18 22:10 Temperature Pulse Rate 102 H 98 H 89 Respiratory Rate 22 16 16 Blood Pressure 130/60 153/77 H 145/69 H Pulse Oximetry 100 98 98 06/04/18 22:23 06/04/18 23:28 06/05/18 00:00 Temperature 98.2 F Pulse Rate 89 90 87 Respiratory Rate 20 Blood Pressure 137/64 Pulse Oximetry 98 06/05/18 04:00 06/05/18 07:50 Temperature 99.1 F 99.3 F Pulse Rate 86 83 Respiratory Rate 19 16 Blood Pressure 134/61 120/78 Pulse Oximetry 94 L 99 Intake & Output 06/04/18 06/05/18 06/05/18 18:59 06:59 18:59 Intake Total 1035 / 1035 100 / 100 Balance 1035 / 1035 100 / 100 Weight 72.575 kg Intake: IV 1035 / 1035 100 / 100 Protonix Inj 80 MG In NS Inj 100 / 100 100 ML @ 10 mls/hr IV.CONT CONT VIANEY Rx#:[id number] Protonix Inj 80 MG In NS Inj 35 35 / 35 ML @ 420 mls/hr IV.SIG BOLUS ONE Rx#:[id number] NS Inj 1,000 ML @ Wide Open IV. 1000 / 1000 SIG BOLUS ONE Rx#:[id number] Oral 0 / 0 Other: # Voids 0 - Constitutional mild distress, thin, cachectic, chronically ill appearing, cooperative - Routine HEENT Exam Head: Present: normocephalic ENT: Present: mucous membranes dry - Routine Neck Exam Present: supple - Routine Respiratory Exam Present: decreased breath sounds (Right greater than left but no obvious wheezing or rhonchi) - Routine Cardiovascular Exam Present: S1, S2 - Routine Abdominal Exam Present: soft, normoactive bowel sounds (No obvious tenderness to light palpation) <Kassi Garner - Last Filed: 06/05/18 11:07> Vital signs: Vital Signs 06/05/18 04:00 06/05/18 07:50 06/05/18 08:00 Temperature 99.1 F 99.3 F Pulse Rate 86 83 82 Respiratory Rate 19 16 Blood Pressure 134/61 120/78 Pulse Oximetry 94 L 99 06/05/18 12:00 06/05/18 12:15 06/05/18 18:14 Temperature 98.5 F Pulse Rate 79 83 84 Respiratory Rate 18 18 Blood Pressure 168/91 H 135/81 Pulse Oximetry 100 100 06/05/18 19:30 06/05/18 19:37 Temperature 99.2 F Pulse Rate 87 84 Respiratory Rate 18 16 Blood Pressure 145/77 H Pulse Oximetry 100 98 Intake & Output 06/05/18 06/05/18 06/06/18 06:59 18:59 06:59 Intake Total 1035 / 1035 100 / 100 Output Total 3500 / 3500 Balance 1035 / 1035 -3400 / -3400 Weight 72.575 kg Intake: IV 1035 / 1035 100 / 100 Protonix Inj 80 MG In NS Inj 100 / 100 100 ML @ 10 mls/hr IV.CONT CONT VIANEY Rx#:[id number] Protonix Inj 80 MG In NS Inj 35 35 / 35 ML @ 420 mls/hr IV.SIG BOLUS ONE Rx#:[id number] NS Inj 1,000 ML @ Wide Open IV. 1000 / 1000 SIG BOLUS ONE Rx#:[id number] Oral 0 / 0 Output: Hemodialysis Amount 3500 / 3500 Other: # Voids 0 <Sa Jose Jud E - Last Filed: 06/06/18 00:19> Results - Labs CBC & Chem 7: 06/05/18 07:20 06/05/18 07:20 Labs: Laboratory Results - last 24 hr 06/04/18 06/04/18 06/04/18 19:55 19:55 19:55 WBC RBC Hgb Hct MCV MCH MCHC RDW Plt Count MPV Prelim Diff (Auto) Neut % (Auto) Lymph % (Auto) Vance % (Auto) Eos % (Auto) Baso % (Auto) Neut # (Auto) Lymph # (Auto) Vance # (Auto) Eos # (Auto) Baso # (Auto) WBC Differential Diff Scan Differential Comment Platelet Estimate Platelet Morphology Ovalocytes PT 11.6 INR 1.1 APTT 23.8 L Sodium 137 Potassium 5.5 H Chloride 103 Carbon Dioxide 22.8 Anion Gap 11 BUN 38 H Creatinine 6.83 H Estimated GFR 7 L POC Glucose Random Glucose 143 H Calcium 8.7 Total Bilirubin 1.7 H AST 32 ALT 13 Alkaline Phosphatase 95 Total Creatine Kinase Troponin I Total Protein 7.7 Albumin 2.7 L Lipase 130 Blood Type Antibody Screen 06/04/18 06/04/18 06/04/18 19:55 19:55 21:25 WBC 11.1 H RBC 3.72 L Hgb 10.9 L Hct 35.5 MCV 95.6 MCH 29.4 MCHC 30.7 L RDW 17.6 H Plt Count 70 L MPV 9.9 Prelim Diff (Auto) Slide review pending Neut % (Auto) 85.6 H Lymph % (Auto) 8.4 L Vance % (Auto) 5.5 Eos % (Auto) 0.0 Baso % (Auto) 0.5 Neut # (Auto) 9.5 H Lymph # (Auto) 0.9 L Vance # (Auto) 0.6 Eos # (Auto) 0.0 Baso # (Auto) 0.1 WBC Differential . Diff Scan Auto diff confirmed Differential Comment . Platelet Estimate Low L Platelet Morphology Normal Ovalocytes 1+ H PT INR APTT Sodium Potassium Chloride Carbon Dioxide Anion Gap BUN Creatinine Estimated GFR POC Glucose Random Glucose Calcium Total Bilirubin AST ALT Alkaline Phosphatase Total Creatine Kinase 90 Troponin I 0.05 Total Protein Albumin Lipase Blood Type O Positive Antibody Screen Negative 06/05/18 06/05/18 06/05/18 07:20 07:20 07:30 WBC 10.0 RBC 3.49 L Hgb 10.5 L Hct 33.9 L MCV 97.0 MCH 30.2 MCHC 31.1 L RDW 17.4 H Plt Count 68 L MPV 10.3 Prelim Diff (Auto) Slide review pending Neut % (Auto) 81.0 H Lymph % (Auto) 12.6 Vance % (Auto) 5.7 Eos % (Auto) 0.5 Baso % (Auto) 0.2 Neut # (Auto) 8.1 H Lymph # (Auto) 1.3 Vance # (Auto) 0.6 Eos # (Auto) 0.0 Baso # (Auto) 0.0 WBC Differential . Diff Scan Auto diff confirmed Differential Comment . Platelet Estimate Low L Platelet Morphology Enlarged H Ovalocytes 1+ H PT INR APTT Sodium 139 Potassium 5.5 H Chloride 105 Carbon Dioxide 26.5 Anion Gap 8 BUN 45 H Creatinine 7.68 H Estimated GFR 6 L POC Glucose 96 Random Glucose 87 Calcium 8.6 Total Bilirubin 1.7 H AST 17 ALT 9 L Alkaline Phosphatase 84 Total Creatine Kinase Troponin I Total Protein 6.7 D Albumin 2.4 L Lipase Blood Type Antibody Screen - Imaging Impressions Chest X-Ray 06/04/18 19:28 CONCLUSION: Small to moderate right effusion with bilateral airspace disease, right greater than left. Head CT 06/04/18 19:52 CONCLUSION: 1. No acute intracranial abnormalities. . <Kassi Garner - Last Filed: 06/05/18 11:07> - Labs CBC & Chem 7: 06/05/18 07:20 06/05/18 07:20 Labs: Laboratory Results - last 24 hr 06/05/18 06/05/18 06/05/18 07:20 07:20 07:30 WBC 10.0 RBC 3.49 L Hgb 10.5 L Hct 33.9 L MCV 97.0 MCH 30.2 MCHC 31.1 L RDW 17.4 H Plt Count 68 L MPV 10.3 Prelim Diff (Auto) Slide review pending Neut % (Auto) 81.0 H Lymph % (Auto) 12.6 Vance % (Auto) 5.7 Eos % (Auto) 0.5 Baso % (Auto) 0.2 Neut # (Auto) 8.1 H Lymph # (Auto) 1.3 Vance # (Auto) 0.6 Eos # (Auto) 0.0 Baso # (Auto) 0.0 WBC Differential . Diff Scan Auto diff confirmed Differential Comment . Platelet Estimate Low L Platelet Morphology Enlarged H Ovalocytes 1+ H Sodium 139 Potassium 5.5 H Chloride 105 Carbon Dioxide 26.5 Anion Gap 8 BUN 45 H Creatinine 7.68 H Estimated GFR 6 L POC Glucose 96 Random Glucose 87 Calcium 8.6 Total Bilirubin 1.7 H AST 17 ALT 9 L Alkaline Phosphatase 84 Total Protein 6.7 D Albumin 2.4 L 06/05/18 06/05/18 06/05/18 12:30 12:30 12:53 WBC RBC Hgb Hct MCV MCH MCHC RDW Plt Count MPV Prelim Diff (Auto) Neut % (Auto) Lymph % (Auto) Vance % (Auto) Eos % (Auto) Baso % (Auto) Neut # (Auto) Lymph # (Auto) Vance # (Auto) Eos # (Auto) Baso # (Auto) WBC Differential Diff Scan Differential Comment Platelet Estimate Platelet Morphology Ovalocytes Sodium Potassium Chloride Carbon Dioxide Anion Gap BUN Creatinine Estimated GFR POC Glucose 69 65 L 80 Random Glucose Calcium Total Bilirubin AST ALT Alkaline Phosphatase Total Protein Albumin 06/05/18 06/05/18 06/05/18 13:52 16:49 18:36 WBC RBC Hgb Hct MCV MCH MCHC RDW Plt Count MPV Prelim Diff (Auto) Neut % (Auto) Lymph % (Auto) Vance % (Auto) Eos % (Auto) Baso % (Auto) Neut # (Auto) Lymph # (Auto) Vance # (Auto) Eos # (Auto) Baso # (Auto) WBC Differential Diff Scan Differential Comment Platelet Estimate Platelet Morphology Ovalocytes Sodium Potassium Chloride Carbon Dioxide Anion Gap BUN Creatinine Estimated GFR POC Glucose 109 78 65 L Random Glucose Calcium Total Bilirubin AST ALT Alkaline Phosphatase Total Protein Albumin 06/05/18 20:41 WBC RBC Hgb Hct MCV MCH MCHC RDW Plt Count MPV Prelim Diff (Auto) Neut % (Auto) Lymph % (Auto) Vance % (Auto) Eos % (Auto) Baso % (Auto) Neut # (Auto) Lymph # (Auto) Vance # (Auto) Eos # (Auto) Baso # (Auto) WBC Differential Diff Scan Differential Comment Platelet Estimate Platelet Morphology Ovalocytes Sodium Potassium Chloride Carbon Dioxide Anion Gap BUN Creatinine Estimated GFR POC Glucose 82 Random Glucose Calcium Total Bilirubin AST ALT Alkaline Phosphatase Total Protein Albumin <Nicholas Lux - Last Filed: 06/06/18 00:19> Assessment and Plan - Plan Hematemesis, noted admission along with altered mental status. Patient denies any vomiting but did note some nausea approximately 24 hours ago. Patient states that she noted a small plug of blood when she coughed which could be related to some hemoptysis. Nausea but no obvious vomiting no dyspepsia no dysphasia. Denies any history of TUMS or taking antacids. Patient's currently being managed on Protonix drip. Questionable whether this is hematemesis or hemoptysis. Will monitor and rule out any obvious GI bleeding and consider EGD. History of diarrhea usually about 2 times a month last episode approximately 1 week ago 1 event aggregating factors are vegetables and some of the foods patient eats. History of end-stage renal disease currently receiving dialysis today last dialysis was . Outpatient is 3 times a week she has not missed any of her appointments Anemia probable chronic disease but will monitor for any acute changes related to GI bleed Patient denies any family history of colon cancer. Last colonoscopy approximately 2 years ago no previous EGD. Patient states colonoscopy was unremarkable Patient denies any rectal bleeding or vomiting blood. Current labs show anemia 10.5, which could be related to her end-stage renal disease and chronic. PT/INR 1.1, bilirubin 1.7 which could be some liver disease versus shock liver versus medications versus her chronic disease AST 17 normal ALT 9 normal lipase 130 normal Plan Diet started clear liquids renal and will advance as tolerated Continue Protonix drip for now Monitor labs with special attention to any acute drop in her hemoglobin Monitor for any hematemesis, might consider EGD, Supportive care Further recommendations to follow Patient was seen per myself and Dr. Lux, note was written on his behalf <Kassi Garner - Last Filed: 06/05/18 11:07> - Plan Patient seen and examined Agree with above Continue with current supportive care Monitor labs Patient denies hematemesis and is quite clear about describing hemoptysis Regardless we will continue with current supportive measures and monitor closely and transfuse as needed EGD may be a consideration depending on hospital course <Nicholas Lux E - Last Filed: 06/06/18 00:19>
--- NOTE | 2018-06-05 13:24 | P.PN ---
Subjective Interval history: Follow-up on patient with acute encephalopathy, GI bleed. Patient seen and examined. Patient is asking if she can be discharged. She states that she feels good and she wants to go home. She denies any chest pain or shortness of breath. She denies any headache, dizziness or vision changes. She denies any new numbness/tingling or weakness. She denies any fever or chills. She denies any nausea. No further episodes of emesis since admission. Physical Exam Vital signs: Vital Signs 06/04/18 19:24 06/04/18 20:09 06/04/18 22:10 Temperature Pulse Rate 102 H 98 H 89 Respiratory Rate 22 16 16 Blood Pressure 130/60 153/77 H 145/69 H Pulse Oximetry 100 98 98 06/04/18 22:23 06/04/18 23:28 06/05/18 00:00 Temperature 98.2 F Pulse Rate 89 90 87 Respiratory Rate 20 Blood Pressure 137/64 Pulse Oximetry 98 06/05/18 04:00 06/05/18 07:50 06/05/18 12:15 Temperature 99.1 F 99.3 F 98.5 F Pulse Rate 86 83 83 Respiratory Rate 19 16 18 Blood Pressure 134/61 120/78 168/91 H Pulse Oximetry 94 L 99 100 Intake & Output 06/04/18 06/05/18 06/05/18 18:59 06:59 18:59 Intake Total 1035 / 1035 100 / 100 Balance 1035 / 1035 100 / 100 Weight 72.575 kg Intake: IV 1035 / 1035 100 / 100 Protonix Inj 80 MG In NS Inj 100 / 100 100 ML @ 10 mls/hr IV.CONT CONT NOLVIA Rx#:[id number] Protonix Inj 80 MG In NS Inj 35 35 / 35 ML @ 420 mls/hr IV.SIG BOLUS ONE Rx#:[id number] NS Inj 1,000 ML @ Wide Open IV. 1000 / 1000 SIG BOLUS ONE Rx#:[id number] Oral 0 / 0 Other: # Voids 0 Narrative: GENERAL: WDWN AAF patient, INAD. Awake and alert. SKIN: Warm and dry. HEAD: Atraumatic. Normocephalic. EYES: Pupils equal and round. No scleral icterus. No injection or drainage. ENT: No nasal bleeding or discharge. Mucous membranes pink and moist. NECK: Trachea midline. CARDIOVASCULAR: Regular rate and rhythm. RESPIRATORY: No accessory muscle use. Expiratory wheezing noted. Breath sounds equal bilaterally. GASTROINTESTINAL: Abdomen soft, non-tender, nondistended. +BS. MUSCULOSKELETAL: Extremities without clubbing, cyanosis, or edema. No obvious deformities. NEUROLOGICAL: Awake and alert. No obvious cranial nerve deficits. Motor grossly within normal limits. Able to move all extremities spontaneously. Normal speech. PSYCHIATRIC: Appropriate mood and affect; insight and judgment normal. Results - Labs CBC & Chem 7: 06/05/18 07:20 06/05/18 07:20 Laboratory Results - last 24 hr 06/04/18 06/04/18 06/04/18 19:55 19:55 19:55 WBC RBC Hgb Hct MCV MCH MCHC RDW Plt Count MPV Prelim Diff (Auto) Neut % (Auto) Lymph % (Auto) [place] % (Auto) Eos % (Auto) Baso % (Auto) Neut # (Auto) Lymph # (Auto) [place] # (Auto) Eos # (Auto) Baso # (Auto) WBC Differential Diff Scan Differential Comment Platelet Estimate Platelet Morphology Ovalocytes PT 11.6 INR 1.1 APTT 23.8 L Sodium 137 Potassium 5.5 H Chloride 103 Carbon Dioxide 22.8 Anion Gap 11 BUN 38 H Creatinine 6.83 H Estimated GFR 7 L POC Glucose Random Glucose 143 H Calcium 8.7 Total Bilirubin 1.7 H AST 32 ALT 13 Alkaline Phosphatase 95 Total Creatine Kinase Troponin I Total Protein 7.7 Albumin 2.7 L Lipase 130 Blood Type Antibody Screen 06/04/18 06/04/18 06/04/18 19:55 19:55 21:25 WBC 11.1 H RBC 3.72 L Hgb 10.9 L Hct 35.5 MCV 95.6 MCH 29.4 MCHC 30.7 L RDW 17.6 H Plt Count 70 L MPV 9.9 Prelim Diff (Auto) Slide review pending Neut % (Auto) 85.6 H Lymph % (Auto) 8.4 L [place] % (Auto) 5.5 Eos % (Auto) 0.0 Baso % (Auto) 0.5 Neut # (Auto) 9.5 H Lymph # (Auto) 0.9 L [place] # (Auto) 0.6 Eos # (Auto) 0.0 Baso # (Auto) 0.1 WBC Differential . Diff Scan Auto diff confirmed Differential Comment . Platelet Estimate Low L Platelet Morphology Normal Ovalocytes 1+ H PT INR APTT Sodium Potassium Chloride Carbon Dioxide Anion Gap BUN Creatinine Estimated GFR POC Glucose Random Glucose Calcium Total Bilirubin AST ALT Alkaline Phosphatase Total Creatine Kinase 90 Troponin I 0.05 Total Protein Albumin Lipase Blood Type O Positive Antibody Screen Negative 06/05/18 06/05/18 06/05/18 07:20 07:20 07:30 WBC 10.0 RBC 3.49 L Hgb 10.5 L Hct 33.9 L MCV 97.0 MCH 30.2 MCHC 31.1 L RDW 17.4 H Plt Count 68 L MPV 10.3 Prelim Diff (Auto) Slide review pending Neut % (Auto) 81.0 H Lymph % (Auto) 12.6 [place] % (Auto) 5.7 Eos % (Auto) 0.5 Baso % (Auto) 0.2 Neut # (Auto) 8.1 H Lymph # (Auto) 1.3 [place] # (Auto) 0.6 Eos # (Auto) 0.0 Baso # (Auto) 0.0 WBC Differential . Diff Scan Auto diff confirmed Differential Comment . Platelet Estimate Low L Platelet Morphology Enlarged H Ovalocytes 1+ H PT INR APTT Sodium 139 Potassium 5.5 H Chloride 105 Carbon Dioxide 26.5 Anion Gap 8 BUN 45 H Creatinine 7.68 H Estimated GFR 6 L POC Glucose 96 Random Glucose 87 Calcium 8.6 Total Bilirubin 1.7 H AST 17 ALT 9 L Alkaline Phosphatase 84 Total Creatine Kinase Troponin I Total Protein 6.7 D Albumin 2.4 L Lipase Blood Type Antibody Screen 06/05/18 06/05/18 06/05/18 12:30 12:30 12:53 WBC RBC Hgb Hct MCV MCH MCHC RDW Plt Count MPV Prelim Diff (Auto) Neut % (Auto) Lymph % (Auto) [place] % (Auto) Eos % (Auto) Baso % (Auto) Neut # (Auto) Lymph # (Auto) [place] # (Auto) Eos # (Auto) Baso # (Auto) WBC Differential Diff Scan Differential Comment Platelet Estimate Platelet Morphology Ovalocytes PT INR APTT Sodium Potassium Chloride Carbon Dioxide Anion Gap BUN Creatinine Estimated GFR POC Glucose 69 65 L 80 Random Glucose Calcium Total Bilirubin AST ALT Alkaline Phosphatase Total Creatine Kinase Troponin I Total Protein Albumin Lipase Blood Type Antibody Screen - Imaging Impressions Chest X-Ray 06/04/18 19:28 CONCLUSION: Small to moderate right effusion with bilateral airspace disease, right greater than left. Head CT 06/04/18 19:52 CONCLUSION: 1. No acute intracranial abnormalities. . Assessment and Plan - Assessment (1) Encephalopathy Code(s): G93.40 - Encephalopathy, unspecified Status: Acute (2) ESRD (end stage renal disease) on dialysis Code(s): N18.6 - End stage renal disease; Z99.2 - Dependence on renal dialysis Status: Acute (3) GI bleed Code(s): K92.2 - Gastrointestinal hemorrhage, unspecified Status: Acute (4) Thrombocytopenia Code(s): D69.6 - Thrombocytopenia, unspecified Status: Acute (5) Pleural effusion Code(s): J90 - Pleural effusion, not elsewhere classified Status: Acute - Plan 63-year-old female with a PMH of HTN, COPD, DM and ESRD on HD T//Thu who was brought to the ER for AMS and Hematemesis. Acute Encephalopathy: family member reports episode of confusion/ hallucinations, now improved. No reported seizure activity. Unclear etiology. Possible dehydration 2/3 N/V CT Head w/ no acute findings -Hold home gabapentin -Neuro Checks -fall precautions GI Bleed: +hematemesis Hgb stable -GI following, appreciate assistance. Started on clear liquid diet. Monitor to see how patient tolerates. -continue to hold ASA -currently on Protonix gtt, continue -monitor H/H Previous admit 11/2013 for Left Popliteal DVT, s/p IVC and started on Coumadin, episode of GI Bleed w/ EGD showing mild gastritis, unclear if she is still on Coumadin. INR normal. Hypertension -resume home dose of Norvasc and Hydralazine -Clonidine prn -monitor BP and adjust treatment accordingly Chronic respiratory failure, O2 dependent COPD with mild expiratory wheezing on exam patient on 3L NC 06/04 at home -Duonebs scheduled -monitor respiratory status Thrombocytopenia: Platelets 70, perviously 70 as well on 04/28/17 Repeat platelets this am stable at 68 -no further episodes of hematemesis -continue to monitor ESRD on HD: T//Thu, follows w/ Dr. Smith Hyperkalemia -Management per Nephrology, appreciate assistance Diabetes BS controlled -accucheks and ISS Pleural Effusions: CXR w/ small to moderate right effusion, h/o similar symptoms, previously on Lasix, now listed as ALLERGY for abdominal pain, will hold for now, confirm allergy. Echo 12/01/10 w/ EF 60-65% -Echo today EF 55-60%, moderate tricuspid regurg, pulmonary hypertension -BP control DVT Prophylaxis: Pharmacologic contraindication in light of acute GI Bleed Code Status: FULL Discussed Condition With: patient, nursing staff, Dr. Sexton Discharge Planning: Not ready for discharge. D/C pending clinical improvement, GI clearance.
--- NOTE | 2018-06-05 14:38 | ECG ---
Date Performed: 06/04/2018 Time Performed: 19:50:11 PTAGE: 63 years EKG: Sinus rhythm MARKED LEFT AXIS DEVIATION NONSPECIFIC ST & T-WAVE ABNORMALITY ABNORMAL ECG INTERPRETATION BASED ON A DEFAULT AGE OF 42 YEARS Since the PREVIOUS TRACING , no significant change noted PREVIOUS TRACIN12/05/2013 21.35 DOCTOR: Antonietta Jaeger Interpretating Date/Time 06/05/2018 14:32:31
--- NOTE | 2018-06-05 15:30 | ECHRPT ---
Indication: Cardiomyopathy, unspecified CONCLUSIONS The left ventricular systolic function is normal with an estimated ejection fraction in the range of 55-60%. There is moderate tricuspid regurgitation. The estimated pulmonary arterial pressure is 60.1 mmHg. There is estimated moderate pulmonary hypertension present (range 50-60 mmHg). The inferior vena cava is dilated. BP: / HR: Rhythm: Sinus MEASUREMENTS (Male / Female) Normal Values Technical Quality:Good 2D ECHO LV Diastolic Diameter PLAX 3.9 cm 4.2 - 5.9 / 3.9 - 5.3 cm LV Systolic Diameter PLAX 2.9 cm IVS Diastolic Thickness 0.8 cm 0.6 - 1.0 / 0.6 - 0.9 cm LVPW Diastolic Thickness 0.8 cm 0.6 - 1.0 / 0.6 - 0.9 cm LV Relative Wall Thickness 0.4 LVOT Diameter 1.8 cm M-MODE Aortic Root Diameter MM 2.7 cm LA Systolic Diameter MM 3.9 cm LA Ao Ratio MM 1.4 AV Cusp Separation MM 2.1 cm DOPPLER AV Peak Velocity 162.0 cm/s AV Peak Gradient 10.5 mmHg LVOT Peak Velocity 93.3 cm/s LVOT Peak Gradient 3.5 mmHg AV Area Cont Eq pk 1.5 cm Mitral E Point Velocity 90.8 cm/s Mitral A Point Velocity 73.5 cm/s Mitral E to A Ratio 1.2 LV E' Lateral Velocity 6.6 cm/s Mitral E to LV E' Lateral Ratio 13.7 LV E' Septal Velocity 4.6 cm/s Mitral E to LV E' Septal Ratio 19.8 TR Peak Velocity 354.0 cm/s TR Peak Gradient 50.1 mmHg Right Atrial Pressure 10.0 mmHg Pulmonary Artery Systolic Pressu 60.1 mmHg Right Ventricular Systolic Press 60.1 mmHg PV Peak Velocity 80.1 cm/s PV Peak Gradient 2.6 mmHg FINDINGS LEFT VENTRICLE The left ventricular systolic function is normal with an estimated ejection fraction in the range of 55-60%. Wall thickness is normal. Normal left ventricular size. RIGHT VENTRICLE Grossly normal LEFT ATRIUM The left atrial size is mildly dilated. RIGHT ATRIUM The right atrial size is mildly dilated. ATRIAL SEPTUM Normal atrial septal thickness AORTA The aortic root and proximal ascending aorta are normal in size on limited imaging. MITRAL VALVE Structurally normal mitral valve. No mitral valve stenosis or regurgitation. AORTIC VALVE Trileaflet aortic valve. No aortic valve stenosis or regurgitation. TRICUSPID VALVE Grossly normal There is moderate tricuspid regurgitation. No tricuspid valve stenosis. The estimated pulmonary arterial pressure is 60.1 mmHg. There is estimated moderate pulmonary hypertension present (range 50-60 mmHg). PULMONARY VALVE The pulmonary valve is not well visualized. VESSELS The inferior vena cava is dilated. There is less than 50% respiratory change in dimension of the inferior vena cava (abnormal). PERICARDIUM No pericardial effusion. Gary Wilson DO (Electronically Signed) Final Date:05 June 2018 15:29
[2018-06-05] MEDS: Insulin NovoLIN Regular Correctional Sugar Inj SQ SCH ×3 (20:44→22:58)
[2018-06-05] MEDS: hydrALAZINE 50 MG Tablet PO SCH (22:58)
[2018-06-06] MEDS: Pantoprazole Inj 80 MG in Sodium Chlor 0.9% Inj 100 ML IV.CONT SCH (07:33)
[2018-06-06 08:04] VITALS: RESP 18
[2018-06-06 08:11] LABS: Calcium 8.1 mg/dL (8.5-10.1); Carbon Dioxide 29.2 meq/L (21.0-32.0); Potassium 4.2 meq/L (3.5-5.1)
[2018-06-06] MEDS: Insulin NovoLIN Regular Correctional Sugar Inj SQ SCH ×2 (08:48→13:10)
[2018-06-06] MEDS ORDERED: amLODIPine 10 MG Tablet PO SCH (09:00)
[2018-06-06] MEDS: hydrALAZINE 50 MG Tablet PO SCH ×2 (09:17→13:49)
[2018-06-06] MEDS: Senna/Docusate Sodium 8.6/50 MG Tablet PO SCH (09:17)
[2018-06-06 10:04] LABS: Baso % (Auto) 0.5 % (0.0-2.0); Eos # (Auto) 0.2 th/mm3 (0.0-0.4); Eos % (Auto) 2.5 % (0.0-4.0); Hematocrit 34.6 % (35.0-46.0); Hemoglobin 10.8 gm/dL (11.6-15.3); Lymph # (Auto) 0.8 th/mm3 (1.0-4.8); Lymph % (Auto) 13.6 % (9.0-44.0); Mean Corpuscular HGB Conc 31.1 % (32.0-36.0); Mean Corpuscular Hemoglobin 29.7 pg (27.0-34.0); Mean Corpuscular Volume 95.3 fL (80.0-100.0); Mean Platelet Volume 10.2 fL (7.0-11.0); Mono # (Auto) 0.3 th/mm3 (0.0-0.9); Mono % (Auto) 5.2 % (0.0-8.0); Neut # (Auto) 4.8 th/mm3 (1.8-7.7); Neut % (Auto) 78.2 % (16.0-70.0); Platelet Count 77 th/mm3 (150-450); Red Blood Count 3.64 mil/mm3 (4.00-5.30); Red Cell Distribution Width 17.2 % (11.6-17.2); White Blood Count 6.1 th/mm3 (4.0-11.0)
--- NOTE | 2018-06-06 10:30 | P.PNGI ---
Physical Exam Vital signs: Vital Signs 06/05/18 12:00 06/05/18 12:15 06/05/18 18:14 Temperature 98.5 F Pulse Rate 79 83 84 Respiratory Rate 18 18 Blood Pressure 168/91 H 135/81 Pulse Oximetry 100 100 06/05/18 19:30 06/05/18 19:37 06/06/18 00:00 Temperature 99.2 F 99.9 F H Pulse Rate 87 84 88 Respiratory Rate 18 16 16 Blood Pressure 145/77 H 112/65 Pulse Oximetry 100 98 98 06/06/18 04:00 06/06/18 07:45 06/06/18 08:00 Temperature 98.3 F 97.9 F Pulse Rate 90 84 77 Respiratory Rate 16 20 18 Blood Pressure 110/73 121/75 Pulse Oximetry 97 99 Intake & Output 06/05/18 06/06/18 06/06/18 18:59 06:59 18:59 Intake Total 100 / 100 Output Total 3500 / 3500 Balance -3400 / -3400 Intake: IV 100 / 100 Protonix Inj 80 MG In NS Inj 100 / 100 100 ML @ 10 mls/hr IV.CONT CONT NOLVIA Rx#:[id number] Output: Hemodialysis Amount 3500 / 3500 <Kassi Garner M - Last Filed: 06/06/18 10:27> Vital signs: Vital Signs 06/05/18 18:14 06/05/18 19:30 06/05/18 19:37 Temperature 99.2 F Pulse Rate 84 87 84 Respiratory Rate 18 18 16 Blood Pressure 135/81 145/77 H Pulse Oximetry 100 100 98 06/06/18 00:00 06/06/18 04:00 06/06/18 07:45 Temperature 99.9 F H 98.3 F Pulse Rate 88 90 84 Respiratory Rate 16 16 20 Blood Pressure 112/65 110/73 Pulse Oximetry 98 97 06/06/18 08:00 06/06/18 12:00 Temperature 97.9 F 98.2 F Pulse Rate 77 93 H Respiratory Rate 18 18 Blood Pressure 121/75 136/70 Pulse Oximetry 99 100 Intake & Output 06/05/18 06/06/18 06/06/18 18:59 06:59 18:59 Intake Total 100 / 100 30 / 30 Output Total 3500 / 3500 Balance -3400 / -3400 30 / 30 Intake: IV 100 / 100 Protonix Inj 80 MG In NS Inj 100 / 100 30 100 ML @ 10 mls/hr IV.CONT CONT NOLVIA Rx#:[id number] Output: Hemodialysis Amount 3500 / 3500 <Nicholas Lux E - Last Filed: 06/06/18 18:00> Results - Labs CBC & Chem 7: 06/06/18 09:44 06/06/18 06:15 Laboratory Results - last 24 hr 06/05/18 06/05/18 06/05/18 12:30 12:30 12:53 WBC RBC Hgb Hct MCV MCH MCHC RDW Plt Count MPV Prelim Diff (Auto) Neut % (Auto) Lymph % (Auto) [place] % (Auto) Eos % (Auto) Baso % (Auto) Neut # (Auto) Lymph # (Auto) [place] # (Auto) Eos # (Auto) Baso # (Auto) Differential Comment Sodium Potassium Chloride Carbon Dioxide Anion Gap BUN Creatinine Estimated GFR POC Glucose 69 65 L 80 Random Glucose Calcium 06/05/18 06/05/18 06/05/18 13:52 16:49 18:36 WBC RBC Hgb Hct MCV MCH MCHC RDW Plt Count MPV Prelim Diff (Auto) Neut % (Auto) Lymph % (Auto) [place] % (Auto) Eos % (Auto) Baso % (Auto) Neut # (Auto) Lymph # (Auto) [place] # (Auto) Eos # (Auto) Baso # (Auto) Differential Comment Sodium Potassium Chloride Carbon Dioxide Anion Gap BUN Creatinine Estimated GFR POC Glucose 109 78 65 L Random Glucose Calcium 06/05/18 06/06/18 06/06/18 20:41 06:15 07:57 WBC RBC Hgb Hct MCV MCH MCHC RDW Plt Count MPV Prelim Diff (Auto) Neut % (Auto) Lymph % (Auto) [place] % (Auto) Eos % (Auto) Baso % (Auto) Neut # (Auto) Lymph # (Auto) [place] # (Auto) Eos # (Auto) Baso # (Auto) Differential Comment Sodium 138 Potassium 4.2 D Chloride 102 Carbon Dioxide 29.2 Anion Gap 7 BUN 29 H Creatinine 6.15 H Estimated GFR 8 L POC Glucose 82 60 L Random Glucose 62 L Calcium 8.1 L 06/06/18 09:44 WBC 6.1 RBC 3.64 L Hgb 10.8 L Hct 34.6 L MCV 95.3 MCH 29.7 MCHC 31.1 L RDW 17.2 Plt Count 77 L MPV 10.2 Prelim Diff (Auto) Slide review pending Neut % (Auto) 78.2 H Lymph % (Auto) 13.6 [place] % (Auto) 5.2 Eos % (Auto) 2.5 Baso % (Auto) 0.5 Neut # (Auto) 4.8 Lymph # (Auto) 0.8 L [place] # (Auto) 0.3 Eos # (Auto) 0.2 Baso # (Auto) 0.0 Differential Comment . Sodium Potassium Chloride Carbon Dioxide Anion Gap BUN Creatinine Estimated GFR POC Glucose Random Glucose Calcium <Kassi Garner - Last Filed: 06/06/18 10:27> - Labs CBC & Chem 7: 06/06/18 09:44 06/06/18 06:15 Laboratory Results - last 24 hr 06/05/18 06/05/18 06/06/18 18:36 20:41 06:15 WBC RBC Hgb Hct MCV MCH MCHC RDW Plt Count MPV Prelim Diff (Auto) Neut % (Auto) Lymph % (Auto) [place] % (Auto) Eos % (Auto) Baso % (Auto) Neut # (Auto) Lymph # (Auto) [place] # (Auto) Eos # (Auto) Baso # (Auto) WBC Differential Diff Scan Differential Comment Platelet Estimate Platelet Morphology Sodium 138 Potassium 4.2 D Chloride 102 Carbon Dioxide 29.2 Anion Gap 7 BUN 29 H Creatinine 6.15 H Estimated GFR 8 L POC Glucose 65 L 82 Random Glucose 62 L Calcium 8.1 L 06/06/18 06/06/18 06/06/18 07:57 09:44 12:19 WBC 6.1 RBC 3.64 L Hgb 10.8 L Hct 34.6 L MCV 95.3 MCH 29.7 MCHC 31.1 L RDW 17.2 Plt Count 77 L MPV 10.2 Prelim Diff (Auto) Slide review pending Neut % (Auto) 78.2 H Lymph % (Auto) 13.6 [place] % (Auto) 5.2 Eos % (Auto) 2.5 Baso % (Auto) 0.5 Neut # (Auto) 4.8 Lymph # (Auto) 0.8 L [place] # (Auto) 0.3 Eos # (Auto) 0.2 Baso # (Auto) 0.0 WBC Differential . Diff Scan Auto diff confirmed Differential Comment . Platelet Estimate Low L Platelet Morphology Enlarged H Sodium Potassium Chloride Carbon Dioxide Anion Gap BUN Creatinine Estimated GFR POC Glucose 60 L 75 Random Glucose Calcium <Nicholas Lux E - Last Filed: 06/06/18 18:00> Assessment and Plan - Plan Hematemesis, noted admission along with altered mental status. Patient denies any vomiting but did note some nausea approximately 24 hours ago. Patient states that she noted a small plug of blood when she coughed which could be related to some hemoptysis. Nausea but no obvious vomiting no dyspepsia no dysphasia. Denies any history of TUMS or taking antacids. Patient's currently being managed on Protonix drip. Questionable whether this is hematemesis or hemoptysis. Will monitor and rule out any obvious GI bleeding and consider EGD. History of diarrhea usually about 2 times a month last episode approximately 1 week ago 1 event aggregating factors are vegetables and some of the foods patient eats. History of end-stage renal disease currently receiving dialysis today last dialysis was . Outpatient is 3 times a week she has not missed any of her appointments Anemia probable chronic disease but will monitor for any acute changes related to GI bleed Patient denies any family history of colon cancer. Last colonoscopy approximately 2 years ago no previous EGD. Patient states colonoscopy was unremarkable Patient denies any rectal bleeding or vomiting blood. Current labs show anemia 10.5, which could be related to her end-stage renal disease and chronic. PT/INR 1.1, bilirubin 1.7 which could be some liver disease versus shock liver versus medications versus her chronic disease AST 17 normal ALT 9 normal lipase 130 normal 06/06/2018 patient is sitting on side of the bed using the toilet states loose stools when she drinks apple juice but otherwise no abdominal pain no nausea no vomiting no dyspepsia no dysphasia. Patient denies any further hemoptysis and still denies any hematemesis. Current hemoglobin 10.8 mildly increased and stable. At this point patient's symptoms are controlled, probable hemoptysis rather than hematemesis. We can monitor hemoglobin if patient needs EGD but nothing scheduled for now. Transition PPI to p.o. Plan Diet, renal diet as tolerated Change pantoprazole to p.o. dose Monitor labs with special attention to any acute drop in her hemoglobin Consider EGD if drop in hemoglobin or any obvious hematemesis Supportive care Patient was seen per myself and Dr. Lux, note was written on his behalf <Kassi Garner - Last Filed: 06/06/18 10:27> - Plan Patient seen and examined Agree with above Continue with current supportive care Monitor labs Patient denies any hematemesis and she only reports hemoptysis not much to add from a GI perspective at this point we will sign off <Nicholas Lux - Last Filed: 06/06/18 18:00>
--- NOTE | 2018-06-06 10:36 | P.PN ---
Subjective Interval history: Follow-up on patient with acute encephalopathy, GI bleed. Patient seen and examined. Patient states she is doing well. She denies any complaints. She has not had any episodes of hematemesis or hemoptysis. She denies any nausea or vomiting. Denies any abdominal pain. Denies any chest pain or shortness of breath. No fever or chills. Physical Exam Vital signs: Vital Signs 06/05/18 12:00 06/05/18 12:15 06/05/18 18:14 Temperature 98.5 F Pulse Rate 79 83 84 Respiratory Rate 18 18 Blood Pressure 168/91 H 135/81 Pulse Oximetry 100 100 06/05/18 19:30 06/05/18 19:37 06/06/18 00:00 Temperature 99.2 F 99.9 F H Pulse Rate 87 84 88 Respiratory Rate 18 16 16 Blood Pressure 145/77 H 112/65 Pulse Oximetry 100 98 98 06/06/18 04:00 06/06/18 07:45 06/06/18 08:00 Temperature 98.3 F 97.9 F Pulse Rate 90 84 77 Respiratory Rate 16 20 18 Blood Pressure 110/73 121/75 Pulse Oximetry 97 99 Intake & Output 06/05/18 06/06/18 06/06/18 18:59 06:59 18:59 Intake Total 100 / 100 Output Total 3500 / 3500 Balance -3400 / -3400 Intake: IV 100 / 100 Protonix Inj 80 MG In NS Inj 100 / 100 100 ML @ 10 mls/hr IV.CONT CONT NOLVIA Rx#:[id number] Output: Hemodialysis Amount 3500 / 3500 Narrative: GENERAL: WDWN A[facility] patient. Awake and alert. In no acute distress. SKIN: Warm and dry. HEENT: Atraumatic. Normocephalic. Pupils equal and round. No scleral icterus. No injection or drainage. No nasal bleeding or discharge. Mucous membranes pink and moist. NECK: Trachea midline. CARDIOVASCULAR: Regular rate and rhythm. RESPIRATORY: No accessory muscle use. Clear to auscultation. Breath sounds equal bilaterally. GASTROINTESTINAL: Abdomen soft, non-tender, nondistended. +BS. MUSCULOSKELETAL: Extremities without clubbing, cyanosis, or edema. No obvious deformities. NEUROLOGICAL: Awake and alert. No obvious cranial nerve deficits. Motor grossly within normal limits. Able to move all extremities spontaneously. Normal speech. PSYCHIATRIC: Appropriate mood and affect; insight and judgment normal. Results - Labs CBC & Chem 7: 06/06/18 09:44 06/06/18 06:15 Laboratory Results - last 24 hr 06/05/18 06/05/18 06/05/18 12:30 12:30 12:53 WBC RBC Hgb Hct MCV MCH MCHC RDW Plt Count MPV Prelim Diff (Auto) Neut % (Auto) Lymph % (Auto) [place] % (Auto) Eos % (Auto) Baso % (Auto) Neut # (Auto) Lymph # (Auto) [place] # (Auto) Eos # (Auto) Baso # (Auto) Differential Comment Sodium Potassium Chloride Carbon Dioxide Anion Gap BUN Creatinine Estimated GFR POC Glucose 69 65 L 80 Random Glucose Calcium 06/05/18 06/05/18 06/05/18 13:52 16:49 18:36 WBC RBC Hgb Hct MCV MCH MCHC RDW Plt Count MPV Prelim Diff (Auto) Neut % (Auto) Lymph % (Auto) [place] % (Auto) Eos % (Auto) Baso % (Auto) Neut # (Auto) Lymph # (Auto) [place] # (Auto) Eos # (Auto) Baso # (Auto) Differential Comment Sodium Potassium Chloride Carbon Dioxide Anion Gap BUN Creatinine Estimated GFR POC Glucose 109 78 65 L Random Glucose Calcium 06/05/18 06/06/18 06/06/18 20:41 06:15 07:57 WBC RBC Hgb Hct MCV MCH MCHC RDW Plt Count MPV Prelim Diff (Auto) Neut % (Auto) Lymph % (Auto) [place] % (Auto) Eos % (Auto) Baso % (Auto) Neut # (Auto) Lymph # (Auto) [place] # (Auto) Eos # (Auto) Baso # (Auto) Differential Comment Sodium 138 Potassium 4.2 D Chloride 102 Carbon Dioxide 29.2 Anion Gap 7 BUN 29 H Creatinine 6.15 H Estimated GFR 8 L POC Glucose 82 60 L Random Glucose 62 L Calcium 8.1 L 06/06/18 09:44 WBC 6.1 RBC 3.64 L Hgb 10.8 L Hct 34.6 L MCV 95.3 MCH 29.7 MCHC 31.1 L RDW 17.2 Plt Count 77 L MPV 10.2 Prelim Diff (Auto) Slide review pending Neut % (Auto) 78.2 H Lymph % (Auto) 13.6 [place] % (Auto) 5.2 Eos % (Auto) 2.5 Baso % (Auto) 0.5 Neut # (Auto) 4.8 Lymph # (Auto) 0.8 L [place] # (Auto) 0.3 Eos # (Auto) 0.2 Baso # (Auto) 0.0 Differential Comment . Sodium Potassium Chloride Carbon Dioxide Anion Gap BUN Creatinine Estimated GFR POC Glucose Random Glucose Calcium Assessment and Plan - Assessment (1) Encephalopathy Code(s): G93.40 - Encephalopathy, unspecified Status: Acute (2) ESRD (end stage renal disease) on dialysis Code(s): N18.6 - End stage renal disease; Z99.2 - Dependence on renal dialysis Status: Acute (3) GI bleed Code(s): K92.2 - Gastrointestinal hemorrhage, unspecified Status: Acute (4) Thrombocytopenia Code(s): D69.6 - Thrombocytopenia, unspecified Status: Acute (5) Pleural effusion Code(s): J90 - Pleural effusion, not elsewhere classified Status: Acute - Plan 63-year-old female with a PMH of HTN, COPD, DM and ESRD on HD T//Thu who was brought to the ER for AMS and Hematemesis. Acute Encephalopathy: family member reports episode of confusion/ hallucinations, resolved. No reported seizure activity. Unclear etiology. Possible dehydration 2/3 N/V Also possible hypoglycemic episode, blood sugars have been running as low as 60 here in the hospital CT Head w/ no acute findings -Hold home gabapentin -Neuro Checks -fall precautions GI Bleed: +hematemesis, resolved Hgb stable -GI following, appreciate assistance. Tolerating diet. Per GI, cleared for discharge, plan for possible EGD as outpatient -continue to hold ASA -on po Protonix, continue -H/H has remained stable Hypertension -continue home meds of Norvasc and Hydralazine -Clonidine prn -monitor BP and adjust treatment accordingly Chronic respiratory failure, O2 dependent COPD with mild expiratory wheezing on exam, resolved patient on 3L NC 06/04 at home, states breathing is at baseline -Duonebs scheduled -monitor respiratory status Thrombocytopenia: Platelets 70, perviously 70 as well on 04/28/17 Platelets low but appear stable -no further episodes of hematemesis -continue to monitor ESRD on HD: //Thu, follows w/ Dr. Smith Hyperkalemia, resolved s/p HD -Management per Nephrology, appreciate assistance Diabetes BS tightly controlled, discussed with patient. Recommended holding off on resuming long acting insulin as outpatient, monitor BS closely and followup with PCP as outpatient -accucheks and ISS Pleural Effusions: CXR w/ small to moderate right effusion, h/o similar symptoms Echo 12/01/10 w/ EF 60-65% Patient states her breathing is at baseline -Echo today EF 55-60%, moderate tricuspid regurg, pulmonary hypertension -BP control DVT Prophylaxis: Pharmacologic contraindication in light of acute GI Bleed Discharge patient to home Condition on discharge: Stable Heart healthy, diabetic renal Diet as tolerated. [place]a activity Rx written: Protonix Follow-up with primary care physician and patients transporter Code Status: FULL Discussed Condition With: patient, nursing staff, Dr. Sexton
[2018-06-06 12:38] VITALS: BP 136/70; PULSE 93; TEMP 98.2; O2SAT 100
== END 2018-06-06 15:15 | disposition home or self-care (01) ==
LOC: NEDA 19:18 → NEPE 19:18 → NEPHCDU 23:11
PROVIDERS: ADMIT Family Medicine; ATTEND Family Medicine
DX: Z88.5 Allergy status to narcotic agent; Z86.718 Personal history of other venous thrombosis and embolism; I12.0 Hypertensive chronic kidney disease with stage 5 chronic kidney disease or end stage renal disease; G93.40 Encephalopathy, unspecified; F17.210 Nicotine dependence, cigarettes, uncomplicated; E87.5 Hyperkalemia; D69.6 Thrombocytopenia, unspecified; J90 Pleural effusion, not elsewhere classified; J44.9 Chronic obstructive pulmonary disease, unspecified; J96.10 Chronic respiratory failure, unspecified whether with hypoxia or hypercapnia; Z99.81 Dependence on supplemental oxygen; Z91.040 Latex allergy status; Z79.4 Long term (current) use of insulin; D63.1 Anemia in chronic kidney disease; E11.22 Type 2 diabetes mellitus with diabetic chronic kidney disease; N18.6 End stage renal disease; I07.1 Rheumatic tricuspid insufficiency; K29.70 Gastritis, unspecified, without bleeding; Z79.82 Long term (current) use of aspirin; Z99.2 Dependence on renal dialysis; R94.31 Abnormal electrocardiogram [ECG] [EKG]; I25.5 Ischemic cardiomyopathy; I27.20 Pulmonary hypertension, unspecified